=== PATIENT | female | born 1955 | race Caucasian/White ===

== ENCOUNTER 2022-12-21 08:41 | Outpatient (AMB) | payer OTHER, SELFPAY ==
[2022-12-21 08:44] VITALS: BP 124/70; PULSE 65; O2SAT 96; BMI 36.5
--- NOTE | 2022-12-21 08:44 | MHC.OFFVIS ---
Intake Vital Signs 12/21/22 08:44 Height 5 ft 4 in Weight 212 lb 11.937 oz BMI 36.5 BP 124/70 Blood Pressure Location Lt brachial Position Sitting Pulse 65 Pulse Source Pulse Oximeter Pulse Oximetry (%) 96 Oxygen Delivery Method Room Air Intake Visit Reasons: Cough Intake Note: New patient today being seen for chronic cough for years . Says it is worsening lately. The cough bothers her every day and is mostly dry. She sees an crop farm helper and they are advising the cough is not related to allergies. Patient says she has a chest xray in Jul [address] scan which showed only scar tissue. Poolroom/Poolhall Manager Required: No Headmaster/Mistress: Headmaster/Mistress offered & declined Accompanied by: Self / Same As Patient Allergies No Known Allergies Allergy (Verified 12/21/22 08:55) Medication List - Last Reconciled 12/21/22 by Dayan Rucker LPN fluticasone propionate 50 mcg/actuation (Flonase Allergy Relief) 1 spray intranasal DAILY loratadine (Claritin) 10 mg PO DAILY HPI Cough HPI Details Eric is a pleasant 67 year old female, minimal smoker as a teenager, with underlying environmental allergies and MATT+. She was referred by her PCP for pulmonary evaluation for chronic nonproductive cough that has been unchanged for years. She reports the cough is variable, has post nasal drip and denies any specific triggers. She does not report any wheezing or dyspnea. She denies any hemoptysis or chest pain. She denies any fevers, chills or weight loss. She states she has had bronchitis at least twice per year for over 20 years. She reports her PCP performed a thorough work up with labs and imaging, including a chest CT, but reports not available. She recalled the CT revealed some scarring which was attributed to multiple episodes of bronchitis. She has been evaluated in the past by an crop farm helper and reported multiple environmental allergies. She is currently using Flonase and Claritin daily along with albuterol multiple times per day with partial relief. She has not trialed any maintenance inhalers. She denies any personal or family history of autoimmune disorders. Her paternal grandfather, nonsmoker, had lung cancer. She denies any occupational exposures, as she has worked in an office setting. [facility] Surgical History (Updated 12/20/22 @ 16:16 by Dayan Rucker LPN) History of bilateral tubal ligation History of carpal tunnel repair History of section, classical Hx of cholecystectomy Social History (Updated 12/21/22 @ 08:58 by Dayan Rucker LPN) Patient Tobacco Use Status: Former Tobacco user Cigarettes Per Day: 2 Years Smoked: 2-3 Review of Systems Const Denies chills, Denies excessive sweating, Denies fever(s), Denies headache(s) and Denies night sweats Eyes Denies irritation and Denies itchy eyes ENT Reports Normal hearing present, Denies headache(s), Denies nasal congestion, Denies nasal discharge, Denies post nasal drip and Denies sore throat Card Denies chest pain, Denies chest pain at rest, Denies chest pain with activity, Denies claudication, Denies leg edema, Denies dyspnea, Denies dyspnea on exertion, Denies orthopnea and Denies paroxysmal nocturnal dyspnea Resp Denies chest congestion, Denies excessive phlegm production, Denies pain on inspiration, Denies pain with cough, Denies dyspnea, Denies dyspnea on exertion, Denies stridor and Denies wheezing Musc Denies myalgias Neuro Reports Normal hearing present and Denies headache(s) Endo Denies excessive sweating Yohan/Lymph Denies lymphadenopathy Aller/Immun Denies itchy eyes, Denies seasonal rhinorrhea and Denies wheezing Physical Exam Vital Signs: Last Vital Signs Pulse 65 12/21/22 08:44 BP 124/70 12/21/22 08:44 Pulse Ox 96 12/21/22 08:44 Oxygen Delivery Method Room Air 12/21/22 08:44 BMI result Body Mass Index 36.5 Const General: cooperative, healthy appearing, comfortable, no acute distress, well developed and alert Nutritional Appearance: obese Orientation/consciousness: patient oriented x3 Limitations: no limitations HEENT Head: Yes normal to inspection, Yes normocephalic and Yes atraumatic Ears: hearing grossly normal bilaterally and external ears normal Eyes General: appearance normal, both eyes and all related structures Eyelids: Yes eyelids normal Sclerae: sclerae normal EOM: EOMs intact bilaterally Neck Neck: Yes normal visual inspection and Yes no lymphadenopathy Lymphatic: no lymphadenopathy noted Chest Chest palpation & inspection: normal inspection of the chest Resp Effort & Inspection: normal respiratory effort, able to speak in complete sentences, no audible wheezes, no cough, no stridor, not tachypneic, no tripod positioning and no use of accessory muscles Auscultation: clear to auscultation bilaterally Cardio Jugular venous distension: no JVD Rate: regular rate Rhythm: regular rhythm Skin Other: warm, dry General skin exam: no rashes or lesions noted Neuro General: patient oriented x3 Cranial nerves: Yes Normal hearing present Cognition (Neuro): normal cognition Gait exam (Neuro): Normal gait present Extrem General: Yes normal to inspection, Yes capillary refill normal, Yes no clubbing, cyanosis or edema and Yes no pedal edema Psych Appearance: grossly normal and well kempt Speech and movement: Normal speech and movement present and Clear speech present Affect: normal affect Attitude: cooperative Thought process: Normal thought process present Thought content: Normal thought content present Insight: Good insight present (Psych) Judgement: Good judgement present (Psych) Assessment & Plan Assessment & Plan (1) Chronic cough: Code(s): R05.3 - Chronic cough (2) Environmental allergies: Code(s): Z91.09 - Other allergy status, other than to drugs and biological substances (3) MATT positive: Code(s): R76.8 - Other specified abnormal immunological findings in serum Plan Will request prior imaging report and lab work. If not recently performed, will order CBC to evaluate for eosinophilia as well as IgE and RAST. Her symptoms may have an allergic component, as she stated she had to discontinue skin testing in the past due to significant reaction. Will obtain PFT to assess for any obstructive defect contributing to her cough and empirically trial ICS. Inhaler technique reviewed. Although patient MATT+, at this time denies any related symptoms. Will reassess after receiving prior labs. All questions were answered and patient is in agreement of plan. Will follow up after to review results. Orders: Orders PFT pulmonary function test Today R05.3 - Chronic cough Medications: New fluticasone propionate 44 mcg/actuation (Flovent HFA) 2 puffs inhalation BID 10.6 grams 0RF albuterol sulfate 90 mcg/actuation 2 puffs inhalation Q4-6H PRN 1 ea 3RF shortness of breath or wheezing Coding Level of Care Code New Pt Level 4 (92422) Diagnoses Chronic cough R05.3 Environmental allergies Z91.09 MATT positive R76.8
== END 2022-12-21 09:31 | disposition home or self-care (01) ==
PROVIDERS: PCP Internal Medicine Medical Oncology; Referring Provider Internal Medicine Medical Oncology; Visit Provider Nurse Practitioner Family
DX: R05.3 Chronic cough (principal); Z91.09 Other allergy status, other than to drugs and biological substances; R76.8 Other specified abnormal immunological findings in serum
CPT/HCPCS: 99204

== ENCOUNTER → 2022-12-21 08:41 | Outpatient (BNVA) | payer OTHER, SELFPAY | PROVIDERS: Visit Provider Nurse Practitioner Family ==

== ENCOUNTER 2023-01-12 06:44 | Outpatient (REF) | payer OTHER, SELFPAY ==
[2023-01-12 07:01] LABS: MANUAL DIFF FLAG NO
[2023-01-12 07:10] LABS: Basophils Percent Auto 0.4 % (0-2); Eosinophils Absolute Auto 0.1 X10*3/uL (0.0-0.4); Eosinophils Percent Auto 2.9 % (0-4); Hemoglobin 13.9 g/dl (12.0-16.0); Imm Gran Abs Auto 0.01 X10*3/uL (0.00-0.03); Imm Gran Pct Auto 0.2 % (0.0-0.4); Lymphocytes Absolute Auto 1.4 X10*3/uL (1.2-4.9); Lymphocytes Percent Auto 30.6 % (20-40); Mean Corpuscular HGB Conc 33.1 g/dl (31.0-35.0); Mean Corpuscular Hemoglobin 30.1 pg (27.0-33.0); Mean Corpuscular Volume 90.9 fL (80.0-98.0); Mean Platelet Volume 11.6 fL (9.4-12.3); Monocytes Absolute Auto 0.5 X10*3/uL (0.1-1.2); Monocytes Percent Auto 10.6 % (2-11); Neutrophils Absolute Auto 2.5 x10*3/uL (2.0-8.3); Neutrophils Percent Auto 55.3 % (45-73); Platelet Count 143 X10*3/uL (160-400); Red Blood Count 4.62 X10*6/uL (4.20-5.50); Red Cell Distribution Width 12.4 % (11.0-16.0); White Blood Count 4.5 X10*3/uL (4.8-10.8)
[2023-01-14 09:23] LABS: Immunoglobulin E 43 kU/L (<OR=114)
== END 2023-01-12 06:45 | disposition home or self-care (01) ==
LOC: HO.LAB 06:44
PROVIDERS: PCP Internal Medicine Medical Oncology; Visit Provider Nurse Practitioner Family
DX: R05.3 Chronic cough (principal); Z91.09 Other allergy status, other than to drugs and biological substances
CPT/HCPCS: 36415; 82785; 85025; 86003

== ENCOUNTER 2023-02-22 07:46 | Outpatient (REF) | payer OTHER, SELFPAY | END 2023-02-22 07:47 | disposition home or self-care (01) | LOC: HO.RESP 07:46 | PROVIDERS: PCP Internal Medicine Medical Oncology; Visit Provider Nurse Practitioner Family | DX: R05.3 Chronic cough (principal) ==

== ENCOUNTER 2023-02-28 08:53 | Outpatient (AMB) | payer OTHER, SELFPAY ==
[2023-02-28 08:54] VITALS: BP 118/68; PULSE 71; O2SAT 98; BMI 35.7
--- NOTE | 2023-02-28 08:54 | A.OFFVIS_ITS ---
Intake Vital Signs 3 02/28/23 08:54 Height 5 ft 4 in Weight 208 lb BMI 35.7 BP 118/68 Blood Pressure Location Rt brachial Position Sitting Pulse 71 Pulse Source Pulse Oximeter Pulse Oximetry (%) 98 Oxygen Delivery Method Room Air Intake Visit Reasons: cough Lead Generation Representative Required: No Implementation Consultant: Implementation Consultant offered & declined Accompanied by: Self / Same As Patient Allergies No Known Allergies Allergy (Verified 02/28/23 09:03) Medication List - Last Reconciled 02/28/23 by Dayan Rucker LPN albuterol sulfate 90 mcg/actuation 2 puffs inhalation Q4-6H PRN budesonide 90 mcg/actuation (Pulmicort Flexhaler) 1 inh inhalation BID fluticasone propionate 50 mcg/actuation (Flonase Allergy Relief) 1 spray intranasal DAILY loratadine (Claritin) 10 mg PO DAILY HPI cough 2 HPI0 Details Eric is a pleasant 67 year old female, minimal smoker as a teenager, with underlying environmental allergies and MATT+. She continues to report nonproductive cough and denies chest tightness, wheezing or dyspnea. Prior chest CT revealed mild scarring. Although MATT+, denies any systemic symptoms. Her paternal grandfather, nonsmoker, had lung cancer. At the last visit, she was prescribed Pulmicort and had been using PRN. She reports using consistently for the past week and has had a slight decrease in symptoms. Today she presents to review PFT results. [facility] Surgical History (Updated 12/20/22 @ 16:16 by Dayan Rucker LPN) Hx of cholecystectomy History of carpal tunnel repair History of bilateral tubal ligation History of section, classical Social History (Updated 02/28/23 @ 09:05 by Dayan Rucker LPN) Patient Tobacco Use Status: Former Tobacco user Cigarettes Per Day: 2 Years Smoked: 2-3 Smoked in Last 30 Days: No Review of Systems Const Denies chills, Denies excessive sweating, Denies fever(s), Denies headache(s) and Denies night sweats Eyes Denies irritation and Denies itchy eyes ENT Reports Normal hearing present, Denies headache(s), Denies nasal congestion, Denies nasal discharge, Denies post nasal drip and Denies sore throat Card Denies chest pain, Denies chest pain at rest, Denies chest pain with activity, Denies claudication, Denies leg edema, Denies dyspnea, Denies dyspnea on exertion, Denies orthopnea and Denies paroxysmal nocturnal dyspnea Resp Denies chest congestion, Denies excessive phlegm production, Denies pain on inspiration, Denies pain with cough, Denies dyspnea, Denies dyspnea on exertion, Denies stridor and Denies wheezing Musc Denies myalgias Neuro Reports Normal hearing present and Denies headache(s) Endo Denies excessive sweating Yohan/Lymph Denies lymphadenopathy Aller/Immun Denies itchy eyes, Denies seasonal rhinorrhea and Denies wheezing Physical Exam Vital Signs: Last Vital Signs Pulse 71 02/28/23 08:54 BP 118/68 02/28/23 08:54 Pulse Ox 98 02/28/23 08:54 Oxygen Delivery Method Room Air 02/28/23 08:54 BMI result Body Mass Index 35.7 Const General: cooperative, healthy appearing, comfortable, no acute distress, well developed and alert Nutritional Appearance: obese Orientation/consciousness: patient oriented x3 Limitations: no limitations HEENT Head: Yes normal to inspection, Yes normocephalic and Yes atraumatic Ears: hearing grossly normal bilaterally and external ears normal Eyes General: appearance normal, both eyes and all related structures Eyelids: Yes eyelids normal Sclerae: sclerae normal EOM: EOMs intact bilaterally Neck Neck: Yes normal visual inspection and Yes no lymphadenopathy Lymphatic: no lymphadenopathy noted Chest Chest palpation & inspection: normal inspection of the chest Resp Effort & Inspection: normal respiratory effort, able to speak in complete sentences, no audible wheezes, no cough, no stridor, not tachypneic, no tripod positioning and no use of accessory muscles Auscultation: clear to auscultation bilaterally Cardio Jugular venous distension: no JVD Rate: regular rate Rhythm: regular rhythm Skin Other: warm, dry General skin exam: no rashes or lesions noted Neuro General: patient oriented x3 Cranial nerves: Yes Normal hearing present Cognition (Neuro): normal cognition Gait exam (Neuro): Normal gait present Extrem General: Yes normal to inspection, Yes capillary refill normal, Yes no clubbing, cyanosis or edema and Yes no pedal edema Psych Appearance: grossly normal and well kempt Speech and movement: Normal speech and movement present and Clear speech present Affect: normal affect Attitude: cooperative Thought process: Normal thought process present Thought content: Normal thought content present Insight: Good insight present (Psych) Judgement: Good judgement present (Psych) Results Reviewed Results Reviewed: Assessment & Plan Assessment & Plan (1) Chronic cough: Code(s): R05.3 - Chronic cough (2) Environmental allergies: Code(s): Z91.09 - Other allergy status, other than to drugs and biological substances (3) MATT positive: Code(s): R76.8 - Other specified abnormal immunological findings in serum Plan Reviewed PFT results which did not reveal an obstructive defect or significant response to bronchodilators. However did reveal restriction, likely related to obesity. IgE 43 and RAST positive to dust mites. Reviewed prior labs from PCP and no other tests were performed to assess for connective tissue conditions. If systemic symptoms develop, will send for additional labs, considering she is MATT +. Given that patient has only used her ICS inhaler consistently for the past week, advised to continue to use and will call in 2-3 weeks to see if she has had any increase in symptomatic improvement. All questions were answered and patient is in agreement of plan. Will follow up after to review results. Coding Level of Care Code Est Pt Level 4 (28767) Diagnoses Chronic cough R05.3 Environmental allergies Z91.09 MATT positive R76.8
== END 2023-02-28 09:24 | disposition home or self-care (01) ==
PROVIDERS: PCP Internal Medicine Medical Oncology; Visit Provider Nurse Practitioner Family
DX: R05.3 Chronic cough (principal); Z91.09 Other allergy status, other than to drugs and biological substances; R76.8 Other specified abnormal immunological findings in serum
CPT/HCPCS: 99214

== ENCOUNTER 2024-06-11 10:55 | Outpatient (REF) | payer BC, SELFPAY ==
--- NOTE | ~2024-06-11 | US_ITS ---
EXAMINATION: US THYROID CLINICAL INFORMATION: Tender thyroid. COMPARISON: None available. TECHNIQUE: Linear transducer grayscale and color Doppler examination with attention to the region of the thyroid. FINDINGS: SIZE: Measurements of the thyroid lobes and nodules are given in sagittal, anteroposterior and transverse dimensions respectively. Right Thyroid Lobe: 4.2 x 1.3 x 1 point cm, volume 5 mL. Parenchyma: The gland echotexture is normal. Thyroid vascularity is normal. Left Thyroid Lobe: 3.7 x 1.4 x 1.8 cm, volume 4.8 mL. Parenchyma: The gland echotexture is normal. Thyroid vascularity is normal. Isthmus: 0.3 cm in maximum AP dimension. Estimated total number of nodules greater than or equal to 1 cm: 9. Lever Operator nodules are described as follows: There are no thyroid nodules visualized. However there are multiple anechoic very small cysts. NODES: No lymphadenopathy is seen in the tissue surrounding the thyroid gland. US/US thyroid IMPRESSION: Unremarkable thyroid ultrasound. ACR TI-RADS RECOMMENDATION REFERENCE: Ultrasound-guided fine-needle aspiration, followup ultrasound, no further follow up. * TR1 (0 point) and TR2 (2 points): No FNA or follow up. * TR3 (3 points): FNA if more than or equal to 2.5 cm in maximum dimension, followup ultrasound in 1, 3 and 5 years if 1.5 to 2.4 cm in maximum dimension. * TR4 (4-6 points): FNA if more than or equal to 1.5 cm in maximum dimension, followup ultrasound in 1, 2, 3 and 5 years if 1 to 1.4 cm in maximum dimension. * TR5 (more than or equal to 7 points): FNA if more than or equal to 1 cm in maximum dimension, followup ultrasound every year for 5 years if 0.5 to 0.9 cm in maximum dimension. * TR3, TR4 or TR5 nodules that are below the size threshold for followup receive no follow up. Electronically signed by: Fish Monsalve MD 06/11/2024 11:44 AM [facility] [place]
== END 2024-06-11 10:56 | disposition home or self-care (01) ==
LOC: HO.US 10:55
PROVIDERS: PCP Internal Medicine Medical Oncology; Visit Provider Internal Medicine Medical Oncology
DX: R05.3 Chronic cough (principal)
CPT/HCPCS: 76536

== ENCOUNTER → 2024-06-11 11:10 | Outpatient (BNV) | payer BC, SELFPAY | PROVIDERS: PCP Internal Medicine Medical Oncology; Visit Provider Radiology Diagnostic Radiology | DX: E04.1 Nontoxic single thyroid nodule (principal) | CPT/HCPCS: 76536 ==

== ENCOUNTER 2025-04-23 09:30 | Outpatient (REF) | payer BC, SELFPAY ==
--- OUTSIDE RECORDS SUMMARY | 2024-08-02 05:30 | XMS_ITS ---
Author Organization Mahendra Lindsay III, MD Address [address] [place] [address] Care Team Providers Care Sheet Heater Helper Name Role Phone Dr. Mahnedra Lindsay III Primary Care Provider Allergies Allergen (clinical drug ingredient) Drug/Non Drug Allergy documented on EMR Reaction Allergy Type Onset Date Status No Known Drug Allergy Unknown Drug Allergy Active Reason For Referral Reason persistant cough wit h hoarseness Diagnosis 1 Acute cough (R05.1) Diagnosis 2 Hoarseness (R49.0) Referral Organization Mahendra Lindsay III, MD Referring Provider First Name Mahendra Referring Provider Last Name Angélica Referring Provider Speciality Internal M edicine Referred Provider [facility], [facility] Referred Provider Specialty Otolaryngolo gy General Notes Taryn Kaiser CMA 08/06 11:01:45 AM >referral/demo/progress [facility] 08/07/2024 10:06:32 AM > Patient stated she is going to contact their office to schedule an appointment as she was seen there in the past., Taryn Kaiser CMA 08/14/2024 03:26:49 PM >called ENT pt is scheduled to see Bhavani BRYAN on 05/06/2025 Referral Priority Routine Referral Appointment Date 05/06/2025 REASON FOR VISIT Viral syndrome, Severe cough, Congestion, Bronchitis, Hypertension, History of thyroiditis Medications Medication SIG (Take, Route, Frequency, Duration) Notes Start Date End Date Status Doxepin HCl 10 MG TAKE 1 CAPSULE BY [facility] EVERY DAY AT BEDTIME FOR 30 DAYS Active Pulmicort Flexhaler 90 MCG/ACT Inhalation Active Omeprazole 40 MG 1 capsule 30 minutes before morning meal Orally Once a day Active Benzonatate 200 MG 1 capsule Orally Thr ee times a day for 90 days 01/27/2024 07/28/2025 Active Gabapentin 300 MG 1 capsule Orally thr ee times a day for 30 days 08/02/2024 Active Aspirin 81 81 MG 1 tablet Orally Once a day Active Pantoprazole Sodium 40 MG 1 tablet Orall y Once a day for 90 days 10/07/2023 Active Claritin 10 MG 1 tablet Orally Once a day Active Atenolol 25 MG TAKE 2 TABLETS ONCE DAILY Active Sertraline HCl 25 MG 1 tablet Orally Onc e a day 06/02/2022 Active Flonase Allergy Relief 50 MCG/ACT 1 spray in each nostril Nasally Once a day Active Albuterol Sulfate HFA 108 (90 Base) MCG/ACT 1 puff as needed Inhalation every 4 hrs 08/27/2019 Active Ibuprofen 200 MG 1 tablet with food o r milk as needed Orally every 6 hrs Active Tylenol Extra Strength 500 MG 1 tablet as needed Orally every 6 hrs Active Calcium 600 + D 600-400 MG-UNIT 1 tablet with a meal Orally Once a day Active Social History Tobacco Use: Social History Observation Description Date Details (start date - stop date) Never Smoker NA - NA Sex Assigned At : Social History Observation Description Sex Assigned At Female Tobacco Use/Smoking Question Answer Notes Patient is a nonsmoker Additional Findings: Tobacco Non-User Aggressive non-smoker Problems Problem Type SNOMED Code ICD Code Onset Dates Problem Status W/U Status Risk Notes Problem [id number] Acute viral bronchitis (J20.8) Active confirmed She continues to have congestion and a refractory cough. I have given her a prescription for benzonatate. She will call me in 3 days to report on its efficacy. Vital Signs Temperature 98.8 degrees Fahrenheit 08/02/19 25 Blood pressure systolic 142 mm Hg 08/02/19 25 Blood pressure diastolic 82 mm Hg 025 Heart Rate 89 /min 08/02/2024 Height 64 in 08/02/2024 Weight 213 lbs 08/02/2024 BMI 36.56 kg/m2 08/02/2024 Her Encounters Encounter Location Date Provider Diagnosis Mahendra Lindsay III, MD [address] [place] [address] [place], [place] [address] 08/02/2024 Mahendra Lindsay Mixed hyperlipidemia E78.2 ; Acute viral bronchitis J20.8 ; Essential hypertension I10 ; Osteopenia after menopause M81.0 ; Obesity (BMI 30-39.9) E66.9 ; Osteoarthritis of spine with radiculopathy, cervical region M47.22 and Generalized anxiety disorder F41.1 Assessments Encounter Date Diagnosis (ICD Code) Assessment Notes Treat ment Notes Treatment Clinical Notes 08/02/2024 Mixed hyperlipidemia (ICD-10 - E78.2) Her total cholesterol was 243 with an LDL of 150 and an HDL elevated at 76. Her ratio is under 4.0. We have discussed the use of a statin. She continues the effort at weight reduction and lipids reduction by diet. 08/02/2024 Acute viral bronchitis (ICD-10 - J20.8) She continues to have congestion and a refractory cough. I have given her a prescription for benzonatate. She will call me in 3 days to report on its efficacy. 08/02/2024 Essential hypertension (ICD-10 - I10) Her blood pressure today is 142/82. No change in her regimen was made. We discussed aggressive sodium restriction and weight loss combined with regular physical activity. 08/02/2024 Osteopenia after menopause (ICD-10 - M81.0) She is stable and without bone pain. She will continue on current therapy. 08/02/2024 Obesity (BMI 30-39.9 ) (ICD-10 - E66.9) . Her body mass index is 36.9.. We discussed diet and nutrition today. We made a plan to lose weight at a rate of one half of a pound per week through a diet restricted in fat calories and sodium. 08/02/2024 Osteoarthritis of spine with radiculopathy, cervical region (ICD-10 - M47.22) He is going to have a surgical procedure to repair this next Tuesday. 08/02/2024 Generalized anxiety disorder (ICD-10 - F41.1) She was continued on sertraline with follow-up visits. Plan Of Treatment Medication Medication Name Sig Start Date Stop Date Notes Doxepin HCl 10 MG TAKE 1 CAPSULE BY [facility] EVERY DAY AT BEDTIME FOR 30 DAYS Pulmicort Flexhaler 90 MCG/ACT Inhalation Omeprazole 40 MG 1 capsule 30 minutes before morning meal Orally Once a day Benzonatate 200 MG 1 capsule Orally Thr ee times a day for 90 days 01/27/2024 07/28/2025 Gabapentin 300 MG 1 capsule Orally thr ee times a day for 30 days 08/02/2024 Aspirin 81 81 MG 1 tablet Orally Once a day Pantoprazole Sodium 40 MG 1 tablet Orall y Once a day for 90 days 10/07/2023 Claritin 10 MG 1 tablet Orally Once a day Atenolol 25 MG TAKE 2 TABLETS ONCE DAILY Sertraline HCl 25 MG 1 tablet Orally Once a day 06/02/2022 Flonase Allergy Relief 50 MCG/ACT 1 spray in each nostril Nasally Once a day Albuterol Sulfate HFA 108 (9 0 Base) MCG/ACT 1 puff as needed Inhalation every 4 hrs 08/27/2019 Ibuprofen 200 MG 1 tablet with food o r milk as needed Orally every 6 hrs Tylenol Extra Strength 500 MG 1 tablet a s needed Orally every 6 hrs Calcium 600 + D 600-400 MG-UNIT 1 tablet with a meal Orally Once a day Referrals Referral Date Details 08/02/2024 08/02/2024, persista nt cough with hoarseness, of [facility], [facility] Next Appt Details Follow Up: as scheduled October for annual exam, Reason: annual exam Provider Name:Mahendra Lindsay , 05/09/2025 09:00:00 AM, [address] [place] [address] [address], [place], [address], Provider Name:Mahendra Lindsay , 01/07/2026 09:00:00 AM, [address] [place] [address] [address], [place], [address], Progress Notes * GAYLE VAZQUEZ DDOB:[birth year] (69 yo F)Acc No.[id number]:08/02/2024 Progress Notes Patient: Selin CHAOSHASHANK GAYLE Abbasi Provider: Selin Lindsay MD :1955 A ge:69 Y S ex:Female Date:08/02/2024 Address:[address] [place], [place] [id number] Subjective: * Chief Complaints: * V iral syndromeSevere coughCongestionBronchitisHypertensionHistory of thyroiditis * HPI: C OVID-19 Screening: She has had a moderate to severe viral syndrome with a refractory cough and pulmonary congestion and bronchitis recently. He has requested cough medication. She has had no relief with medications that contain dextromethorphan. She was given a prescription for benzonatate and instructions to call back after a trial of this product. Questions H ave you had any new onset fever, chills, cough, congestion, sore throat, shortness of breath, muscle aches? N o * ROS: G eneral/Constitutional: pain o nly normal aches and pains. C hills d enies.?Fatigue a dmits. F ever d enies. E NT: Decreased hearing d enies. R espiratory: Cough K eeps her awake at night. C ardiovascular: Chest pain with exertion d enies. D yspnea on exertion?denies. S hortness of breath d enies. G astrointestinal: Constipation o ccasional. D ecreased appetite d enies. D iarrhea d enies. H eartburn d enies. N ausea d enies. R ectal bleeding d enies. V omiting d enies. H ematology: bruising d enies. p etechiae d enies. S wollen glands n one have been noted. G enitourinary: Frequent urination d enies. M usculoskeletal: Muscle aches d enies. P ainful joints d enies. S ciatica d enies. W eakness t hat is generalized. S kin: Itching d enies. R killian d enies. S kin lesion(s)?denies. N eurologic: Difficulty speaking d enies. D izziness d enies.?Headache d enies. L ow back pain d enies. P sychiatric: Depressed mood d enies. * Medical History: * Surgical History: c esarean section tubal ligation appendectomy bilateral carpal tunnel surgery cholecystectomy 2018colonoscopy next due to thousand 19 kidney stones removal 06/2018Kidnvenkat stone removal 09/2019Colonoscopy Dr. Donis 10/2019Biopsy done on left knee Dr. [employer] Professor eft wrist surgery 02/15/2023No history * Hospitalization/Major Diagno stic Procedure: r enal colic 12/30/17chest pain [facility] 12/2020No history * Family History: F ather: alive 85 yrs, CAD, diagnosed with CVD. M other: alive 81 yrs, AODM, breast cancer age 78, diagnosed with HTN, CVD, Cancer, DM. C hildren: alive. S iblings: alive. P aternal aunt: alive, diagnosed with CVD. M aternal aunt: alive, diagnosed with Cancer. M aternal Grand Mother: diagnosed with Cancer. 1 brother(s) . . Her brother has coronary artery disease and back problems. She has 1 child, Kristy, and a grand child alive and well. A maternal grandmother had breast cancer. A paternal aunt has coronary artery disease. A maternal aunt has breast cancer and lymphoma. Another aunt has fibrocystic disease. She is not aware of any family history of mental illness or substance use disorder or addiction. The patient's aunt of lymphoma. * Social History: T obacco Use: T obacco Use/Smoking P atjesus is a n onsmoker A dditional Findings: Tobacco Non-User A ggressive non-smoker S he works at [employer] with no exposures. She has been to Eddie for 40 years. She has 1 healthy child and 1 healthy grandchild. {'Custodial': 'The patient is retiring and will be getting new insurance at the start of the new year.', 'Water Intake': 'The patient drinks a lot of water because her mouth is always dry.'}. * Medications: T akingDoxepin HCl 10 MG Capsule TAKE 1 CAPSULE BY MOUTH EVERY DAY AT BEDTIME FOR 30 DAYS Albuterol Sulfate HFA 108 (90 Base) MCG/ACT Aerosol Solution 1 puff as needed Inhalation every 4 hrs Ibuprofen 200 MG Tablet 1 tablet with food or milk as needed Orally every 6 hrs Tylenol Extra Strength 500 MG Tablet 1 tablet as needed Orally every 6 hrs Calcium 600 + D 600-400 MG-UNIT Tablet 1 tablet with a meal Orally Once a day Flonase Allergy Relief 50 MCG/ACT Suspension 1 spray in each nostril Nasally Once a day Claritin 10 MG Tablet 1 tablet Orally Once a day Atenolol 25 MG Tablet TAKE 2 TABLETS ONCE DAILY Sertraline HCl 25 MG Tablet 1 tablet Orally Once a day Pantoprazole Sodium 40 MG Tablet Delayed Release 1 tablet Orally Once a day Aspirin 81 81 MG Tablet Delayed Release 1 tablet Orally Once a day Pulmicort Flexhaler 90 MCG/ACT Aerosol Powder Breath Activated Inhalation Omeprazole 40 MG Capsule Delayed Release 1 capsule 30 minutes before morning meal Orally Once a day Benzonatate 200 MG Capsule 1 capsule as needed Orally Three times a day Medication List reviewed and reconciled with the patientTaking Doxepin HCl 10 MG Capsule TAKE 1 CAPSULE BY MOUTH EVERY DAY AT BEDTIME FOR 30 DAYS Taking Albuterol Sulfate HFA 108 (90 Base) MCG/ACT Aerosol Solution 1 puff as needed Inhalation every 4 hrs Taking Ibuprofen 200 MG Tablet 1 tablet with food or milk as needed Orally every 6 hrs Taking Tylenol Extra Strength 500 MG Tablet 1 tablet as needed Orally every 6 hrs Taking Calcium 600 + D 600-400 MG-UNIT Tablet 1 tablet with a meal Orally Once a day Taking Flonase Allergy Relief 50 MCG/ACT Suspension 1 spray in each nostril Nasally Once a day Taking Claritin 10 MG Tablet 1 tablet Orally Once a day Taking Atenolol 25 MG Tablet TAKE 2 TABLETS ONCE DAILY Taking Sertraline HCl 25 MG Tablet 1 tablet Orally Once a day Taking Pantoprazole Sodium 40 MG Tablet Delayed Release 1 tablet Orally Once a day Taking Aspirin 81 81 MG Tablet Delayed Release 1 tablet Orally Once a day Taking Pulmicort Flexhaler 90 MCG/ACT Aerosol Powder Breath Activated Inhalation Taking Omeprazole 40 MG Capsule Delayed Release 1 capsule 30 minutes before morning meal Orally Once a day Taking Benzonatate 200 MG Capsule 1 capsule as needed Orally Three times a day Medication List reviewed and reconciled with the patient * Allergies: N o Known Drug Allergyno[Allergies Verified] Objective: * Vitals: H t: 64, Wt:213, BMI:36.56, BP:142/82, HR:89, Temp:98.8, Ht-cm: 162.56, Wt-k.62. Her. * P ast Orders: I maging:XR CHEST 2 VIEW PA & LAT (Order Date - 05/29/2024) (Performed Date - 08/02/2024) * Examination: G eneral Examination: GENERAL APPEARANCE: p leasant, well nourished, well developed, in no acute distress, calm and relaxed, overweight, woman. HEAD: a traumatic, normocephalic. EYES: e oleg, perrla, anicteric, conjugate. EARS: n ormal. NOSE: s eptum intact. ORAL CAVITY: n ormal, unremarkable. NECK/THYROID: n o jugular venous distention, no carotid bruit, thyroid normal. LYMPH NODES: n o enlarged lymph nodes,spleen normal. SKIN: n o suspicious lesions, anicteric. HEART: n o clicks, gallops, murmurs, or rubs, regular rhythm, S1, S2 normal, no s3, or vascular bruits. LUNGS: , rhonchi on the RIGHT, rhonchi on the LEFT, good air movement. BREASTS: N ot examined. ABDOMEN: b owel sounds normal, no ascites, no organomegaly, no mass, overweight. RECTAL EXAM: n ot examined. MUSCULOSKELETAL: e xtremities unremarkable, no clubbing, cyanosis or edema. PERIPHERAL PULSES: n ormal. NEUROLOGIC: a lert and oriented, cranial nerves 2-12 grossly intact, deep tendon reflexes 2+ symmetrical, motor strength normal upper and lower extremities, sensory exam intact. PSYCH: a lert, oriented. Assessment: * Assessment: 1. A cute viral bronchitis - J20.8 (Primary) N otes :She continues to have congestion and a refractory cough. I have given her a prescription for benzonatate. She will call me in 3 days to report on its efficacy. 2 . M ixed hyperlipidemia - E78.2 N otes :Her total cholesterol was 243 with an LDL of 150 and an HDL elevated at 76. Her ratio is under 4.0. We have discussed the use of a statin. She continues the effort at weight reduction and lipids reduction by diet. 3 . E ssential hypertension - I10 N otes :Her blood pressure today is 142/82. No change in her regimen was made. We discussed aggressive sodium restriction and weight loss combined with regular physical activity. 4 . O steopenia after menopause - M81.0 N otes :She is stable and without bone pain. She will continue on current therapy. 5 . O besity (BMI 30-39.9) - E66.9 N otes :. Her body mass index is 36.9.. We discussed diet and nutrition today. We made a plan to lose weight at a rate of one half of a pound per week through a diet restricted in fat calories and sodium. 6 . O steoarthritis of spine with radiculopathy, cervical region - M47.22 N otes :He is going to have a surgical procedure to repair this next Tuesday. 7 . G eneralized anxiety disorder - F41.1 N otes :She was continued on sertraline with follow-up visits. Plan: * Treatment: 2. O thers Continue Pantoprazole Sodium Tablet Delayed Release, 40 MG, 1 tablet, Orally, Once a day, 90 days, 90 Tablet, Refills 3; C ontinue Omeprazole Capsule Delayed Release, 40 MG, 1 capsule 30 minutes before morning meal, Orally, Once a day. Referral To:[facility] Otol[facility]ology Reason:persistant cough with hoarseness * Procedure Codes: * Preventive Medicine: Counseling: C are goal follow-up plan: Counseling for abnormal BMI given Y es Above Normal BMI Follow-up D ietary management education, guidance, and counseling, Dietary needs education, Exercise promotion: strength training, Exercise promotion: stretching, Feeding regime, Giving encouragement to exercise, Lifestyle education regarding diet, Nutrition / feeding management, Nutrition therapy, Prescribed activity/exercise education, Prescribed diet education, Prescribed dietary intake, Special diet education, Weight monitoring , Intervention, Order not done: Medical or Other reason not done * Follow Up: a s scheduled October for annual exam (Reason: annual exam) * Images: * Sign off status: Completed true * Provider: Selin Lindsay MD Date: 0 08/02/2024 Generated for Cassandra patrick/[place]/Rachelleitting on: 06/24/2024 03:12 AM EST History and Physical Notes * HPI (History of Present Illness) Category Sub-Category Detail Notes COVID-19 Screening Questions Have you had any new onset fever, chills, cough, congestion, sore throat, shortness of breath, muscle aches?: No Examination Category Sub-Category Detail Notes General Examination GENERAL APPEARANCE: pleasant , well nourished, well developed, in no acute distress, calm and relaxed, overweight, woman HEAD: atraumatic, normocep halic EYES: eomi, perrla, anicte ricarda, conjugate EARS: normal NOSE: septum intact NECK/THYROID: no jugular venous di stention, no carotid bruit, thyroid normal HEART: no clicks, gallops, murmurs, or rubs, regular rhythm, S1, S2 normal, no s3, or vascular bruits LUNGS: , rhonchi on the RIG HT, rhonchi on the LEFT, good air movement ABDOMEN: bowel sounds normal, no ascites, no organomegaly, no mass, overweight NEUROLOGIC: alert and oriented, cranial nerves 2-12 grossly intact, deep tendon reflexes 2+ symmetrical, motor strength normal upper and lower extremities, sensory exam intact SKIN: no suspicious lesion s, anicteric PERIPHERAL PULSES: normal BREASTS: Not examined MUSCULOSKELETAL: extremities unremark able, no clubbing, cyanosis or edema LYMPH NODES: no enlarged lymph no nathan,spleen normal RECTAL EXAM: not examined PSYCH: alert, oriented ORAL CAVITY: normal, unremarkable Consultation Request Notes Referral Date Referring Provider Referred Provider Not 08/02/2024 Mahendra Lindsay Surgeons, of [facility], [facility] persistant cough with hoarseness
--- OUTSIDE RECORDS SUMMARY | 2024-08-02 10:48 | XMS_ITS ---
Author Organization Mahendra Lindsay III, MD Address [address] [place] [address] Care Team Providers Care Biomedical Engineer Name Role Phone Dr. Mahendra Lindsay III Primary Care Provider [phone] REASON FOR VISIT Rx Social History Sex Assigned At : Social History Observation Description Sex Assigned At Female Encounters Encounter Location Date Provider Diagnosis Mahendra Lindsay III, MD [address] [place] [address] [place] [address] 08/02/2024 Mahendra Lindsay Plan Of Treatment Next Appt Details Provider Name:Mahendra Lindsay , 05/09/2025 09:00:00 AM, [address] [place] [address] [place], [address], Provider Name:Mahendra Lindsay , 01/07/2026 09:00:00 AM, [address] [place] [address] [place], [address], Progress Notes * GAYLE VAZQUEZ DDOB:[birth year] (69 yo F)Acc No.[id number]:08/02/2024 Patient: Selin CHAOSHASHANKGAYLE :1955 A ge:69 Y S ex:Female Address:[facility] [place], [address] * true * Date: Generated for Printi ng/Faxing/eTransmitting on: 06/24/2024 03:08 AM EST
--- OUTSIDE RECORDS SUMMARY | 2024-08-07 05:10 | XMS_ITS ---
Author Organization Mahendra Lindsay III, MD Address [address] [place] [address] Care Team Providers Care Genetics Physician Name Role Phone Dr. Mahendra Lindsay III Primary Care Provider Reason For Referral Reason chronic GERD chron ic cough Diagnosis 1 Chronic GERD (K21.9) Diagnosis 2 Chronic cough (R05.3 ) Referral Organization Mahendra Lindsay III, MD Referring Provider First Name Mahendra Referring Provider Last Name Angélica Referring Provider Speciality Internal M edicine Referred Provider JESSIKA WALSH Referred Provider Specialty Gastroentero logy General Notes Taryn Kaiser [facility] 10/31 10:50:24 AM > referral/demo/progress notes faxed to [facility] . pt has been seen there before by Awilda Bobby Suzanne [facility] 10/31/2024 10:54:38 AM > Pt called and made aware of this and told to call the office to set up her appt, Taryn Kaiser [facility] 11/14/2024 02:28:14 PM > spoke to patient she stated she has appt at the end of November 2024 to see Fly Worker, Taryn Kaiser [facility] 11/14/2024 02:34:33 PM >I called [facility] they stated pt has appt with Dr Walsh on 01/02/2025 . Referral Priority Routine Referral Appointment Date 01/02/2025 REASON FOR VISIT Referral for gastro consult Social History Sex Assigned At : Social History Observation Description Sex Assigned At Female Encounters Encounter Location Date Provider Diagnosis Mahendra Lindsay III, MD [address] [place] [address] [place] [address] 08/07/2024 Mahendra Lindsay Plan Of Treatment Referrals Referral Date Details 10/31/2024 10/31/2024, chronic GERD chronic cough, JESSIKA WALSH Next Appt Details Provider Name:Mahendra Liangne , 05/09/2025 09:00:00 AM, [address] [place] [address] [address], [place], [address], Provider Name:Mahendra Lindsay , 01/07/2026 09:00:00 AM, [address] [place] [address] [address], [place], [address], Progress Notes * GAYLE VAZQUEZ DDOB:[birth year] (69 yo F)Acc No.[id number]:08/07/2024 Patient: GAYLE POWERS :1955 A ge:69 Y S ex:Female Address:[address] [place] [address], [address] Subjective: * Chief Complaints: * R eferral for gastro consult * Medical History: * Surgical History: * Hospitalization/Major Diagno stic Procedure: * Medications: Objective: * Vitals: * Physical Examination: Assessment: Plan: * Treatment: * Procedure Codes: * true * Date: Generated for Cassandra patrick/[place]/eTransmitting on: 06/24/2024 03:07 AM EST Consultation Request Notes Referral Date Referring Provider Referred Provider Not lianna 10/31/2024 Mahendra Lindsay PETER chronic GE RD chronic cough
--- OUTSIDE RECORDS SUMMARY | 2024-10-12 12:15 | XMS_ITS ---
Author Organization Mahendra Lindsay III, MD Address [address] [place] [address] Care Team Providers Care Pasta Press Operator Name Role Phone Dr. Mahendra Lindsay III Primary Care Provider REASON FOR VISIT Annual Exam Social History Sex Assigned At : Social History Observation Description Sex Assigned At Female Encounters Encounter Location Date Provider Diagnosis Mahendra Lindsay III, MD [address] [place] [address] [place] [address] 10/12/2024 Mahendra Lindsay Plan Of Treatment Next Appt Details Provider Name:Mahendra Lindsay , 05/09/2025 09:00:00 AM, [address] [place] [address] [place], [address], Provider Name:Mahendra Lindsay , 01/07/2026 09:00:00 AM, [address] [place] [address] [place], [address], Progress Notes * GAYLE VAZQUEZ DDOB:[birth year] (70 yo F)Acc No.[id number]:10/12/2024 Progress Notes Patient: Selin GAYLE BRYANT Provider: Selin Lindsay MD :1955 A ge:69 Y S ex:Female Date:10/12/2024 [place] [place] Subjective: * Chief Complaints: * 1 . Annual Exam. * Medical History: Objective: * Vitals: Assessment: Plan: * Treatment: * Images: * The named appointment provid er may or may not be the originator of this progress note, and it is not deemed complete until electronically signed by the appointment provider. Sign off status: Pending * Provider: Selin Lindsay MD Date: 0 10/12/2024 Generated for Cassandra patrick/Carolina/Daniela on: 06/24/2024 03:04 AM EST
--- OUTSIDE RECORDS SUMMARY | 2025-01-04 04:00 | XMS_ITS ---
Author Organization Mahendra Lindsay III, MD Address [address] [place] [address] [place] [address] Care Team Providers Care Key Operator Name Role Phone Dr. Mahendra Lindsay III Primary Care Provider Allergies Allergen (clinical drug ingredient) Drug/Non Drug Allergy documented on EMR Reaction Allergy Type Onset Date Status No Known Drug Allergy Unknown Drug Allergy Active No Known Food Allergy Unknown Drug Allergy Active REASON FOR VISIT Annual Exam Medications Medication SIG (Take, Route, Frequency, Duration) Notes Start Date End Date Status Gabapentin 300 MG 1 capsule Orally thr ee times a day 08/02/2024 Active Potassium Citrate ER 10 MEQ (1080 MG) TAKE 1 TABLET BY MOUTH EVERY DAY Oral Active Aspirin 81 81 MG 1 tablet Orally Once a day Active Social History Tobacco Use: Social History Observation Description Date Details (start date - stop date) Never Smoker NA - NA Sex Assigned At : Social History Observation Description Sex Assigned At Female Tobacco Control (Standard) Question Answer Notes Tobacco use: Nonsmoker Additional Findings: Tobacco non-user Aggressive nonsmoker AUDIT-C (Standard) Question Answer Notes Did you have a drink containing alcohol in the p ast year? No Points 0 Interpretation Negative Vital Signs Blood pressure systolic 136 mm Hg 01/05/20 25 Blood pressure diastolic 78 mm Hg 025 Heart Rate 72 /min 01/04/2025 Respiratory Rate 16 /min 01/04/2025 Height 64 in 01/04/2025 Weight 216 lbs 01/04/2025 BMI 37.07 kg/m2 01/04/2025 Encounters Encounter Location Date Provider Diagnosis Mahendra Lindsay III, MD [address] [place] [address] [place], [place] [address] 01/04/2025 Mahendra Lindsay Mixed hyperlipidemia E78.2 ; Essential hypertension I10 ; Obesity (BMI 30-39.9) E66.9 ; Osteopenia after menopause M81.0 ; Osteoarthritis of spine with radiculopathy, cervical region M47.22 ; Osteoarthritis of spine with radiculopathy, lumbar region M47.26 ; Bilateral carpal tunnel syndrome G56.03 ; Nephrolithiasis N20.0 and Essential tremor G25.0 Assessments Encounter Date Diagnosis (ICD Code) Assessment Notes Treat ment Notes Treatment Clinical Notes 01/04/2025 Mixed hyperlipidemia (ICD-10 - E78.2) Her total cholesterol was 243 with an LDL of 150 and an HDL elevated at 76. Her ratio is under 4.0. We have discussed the use of a statin. She continues the effort at weight reduction and lipids reduction by diet. 01/04/2025 Essential hypertension (ICD-10 - I10) Her blood pressure today is 136/78. No change in her regimen was made. We discussed aggressive sodium restriction and weight loss combined with regular physical activity. 01/04/2025 Obesity (BMI 30-39.9 ) (ICD-10 - E66.9) . Her body mass index is 37.. We discussed diet and nutrition today. We made a plan to lose weight at a rate of one half of a pound per week through a diet restricted in fat calories and sodium. 01/04/2025 Osteopenia after menopause (ICD-10 - M81.0) She is stable and without bone pain. She will continue on current therapy. 01/04/2025 Osteoarthritis of spine with radiculopathy, cervical region (ICD-10 - M47.22) He is going to have a surgical procedure to repair this next Tuesday. 01/04/2025 Osteoarthritis of spine with radiculopathy, lumbar region (ICD-10 - M47.26) She has mild pain down the right leg, but now has severe pain down the left leg without any antecedent. She declined an offer of gabapentin. She will continue on acetaminophen and ibuprofen. 01/04/2025 Bilateral carpal tunnel syndrome (ICD-10 - G56.03) She is free of any symptoms at this time. 01/04/2025 Nephrolithiasis (ICD-10 - N20.0) She had an episode of renal colic in September. She will followup with a kiln pusher periodically. A stone was retrieved and she was told it was a calcium stone. We have discussed her calcium intake today. 01/04/2025 Essential tremor (ICD-10 - G25.0) There is been no change in the tremor and is very minor. It will be observed. Plan Of Treatment Medication Medication Name Sig Start Date Stop Date Notes Gabapentin 300 MG 1 capsule Orally thr ee times a day 08/02/2024 Potassium Citrate ER 10 MEQ (1080 MG) TAKE 1 TABLET BY MOUTH EVERY DAY Oral Aspirin 81 81 MG 1 tablet Orally Once a day Next Appt Details Follow Up: 3 Months, Reason: OV Provider Name:Mahendra Lindsay , 05/09/2025 09:00:00 AM, [address] [place] [address] [place], [place], [address], Provider Name:Mahendra Lindsay , 01/07/2026 09:00:00 AM, [address] [place] [address] [place], [place], [address], Progress Notes * GAYLE VAZQUEZ DDOB:[birth year] (69 yo F)Acc No.[id number]:01/04/2025 Progress Notes Patient: GAYLE POWERS Provider: Selin Lindsay MD :1955 A ge:69 Y S ex:Female Date:01/04/2025 Address:[address] [place] [address] Subjective: * Chief Complaints: * A nnual Exam * HPI: D epression Screening: S he returns to the office at the age of 69 for her annual visit. Her main complaints today are that she has neuropathic pain in both feet and some arthritic pain in her lumbar spine. She has been to [facility] and has received injections in her hips. These have been somewhat effective. She has had another round of lithotripsy for kidney stones. She is currently asymptomatic. She denies any chest pain or dyspnea peripheral edema nausea or vomiting or diarrhea. She has been compliant with all of her medications.Her next lithotripsy is scheduled for February 2025. PHQ-9 L ittle interest or pleasure in doing things?Not at all F eeling down, depressed, or hopeless N ot at all T rouble falling or staying asleep, or sleeping too much S everal days F eeling tired or having little energy N ot at all P oor appetite or overeating N ot at all F eeling bad about yourself or that you are a failure, or have let yourself or your family down N ot at all T rouble concentrating on things, such as reading the newspaper or watching television N ot at all M oving or speaking so slowly that other people could have noticed; or the opposite, being so fidgety or restless that you have been moving around a lot more than usual N ot at all T houghts that you would be better off or of hurting yourself in some way N ot at all T otal Score 1 I nterpretation M inimal Depression C OVID-19 Screening: Questions H ave you had any new onset fever, chills, cough, congestion, sore throat, shortness of breath, muscle aches? N o F all Risk Screening: Fall History H ave you had any falls with injury in the past year? N o H ave you had two or more falls in the past year? N o F all Risk Assessment: N o falls in the past year S SON Questions: SDOH Questions I n the past year have you been worried about losing your housing? N o I n the past year have you or any family members you live with been unable to get any of the following when it was really needed? Check all that apply: D ecline to answer * ROS: G eneral/Constitutional: pain H ips legs lumbar spine. C hills d enies. F atigue a dmits. F ever d enies. E NT: Decreased hearing d enies. R espiratory: Cough d enies. C ardiovascular: Chest pain with exertion d [...] have been noted. G enitourinary: Frequent urination a t night. M usculoskeletal: Muscle aches d enies. P ainful joints d enies. S ciatica d enies. W eakness d enies. S kin: Itching d enies. R killian d enies. S kin lesion(s)?denies. N eurologic: Difficulty speaking d enies. D izziness d enies.?Headache d enies. L ow back pain d enies. P sychiatric: Depressed mood d enies. * Medical History: * Surgical History: c esarean section tubal ligation appendectomy bilateral carpal tunnel surgery cholecystectomy 2017colonoscopy next due to thousand 19 kidney stones removal 06/2018Kidney stone removal 09/2019Colonoscopy Dr. Donis 10/2019Biopsy done on left knee Dr. Ventura Electronic Musical Instrument Repairer 1Left wrist surgery 3Kidney stone removed 08/2024 * Hospitalization/Major Diagno stic Procedure: r enal colic 12/30/17chest pain [facility] 12/2020No history * Family History: F ather: alive 92 yrs, CAD, diagnosed with CVD. M other: 85 yrs, AODM, breast cancer age 78, diagnosed [...] Social History: T obacco Use: T obacco Control (Standard) T obacco use: N onsmoker A dditional Findings: Tobacco non-user A ggressive nonsmoker D rugs/Alcohol: D rugs H ave you used drugs other than those for medical reasons in the past 12 months? N o D rug/Alcohol: A CLAUDIA-C (Standard) D id you have a drink containing alcohol in the past year? N o P oints 0 I nterpretation N egative S he works at [employer] with no exposures. She has been to Eddie for 40 years. She has 1 healthy child and 1 healthy grandchild. {'Chcf': 'The patient is retiring and will be getting new insurance at the start of the new year.', 'Water Intake': 'The patient drinks a lot of water because her mouth is always dry.'}. * Medications: T akingAspirin 81 81 MG Tablet Delayed Release 1 tablet Orally Once a day Gabapentin 300 MG Capsule 1 capsule Orally three times a day Potassium Citrate ER 10 MEQ (1080 MG) Tablet Extended Release TAKE 1 TABLET BY MOUTH EVERY DAY Oral Taking Aspirin 81 81 MG Tablet Delayed Release 1 tablet Orally Once a day Taking Gabapentin 300 MG Capsule 1 capsule Orally three times a day Taking Potassium Citrate ER 10 MEQ (1080 MG) Tablet Extended Release TAKE 1 TABLET BY MOUTH EVERY DAY Oral DiscontinuedDoxepin HCl 10 MG Capsule TAKE 1 CAPSULE [...] day Benzonatate 200 MG Capsule 1 capsule Orally Three times a day , stop date 07/28/2025Discontinued Doxepin HCl 10 MG Capsule TAKE 1 CAPSULE BY MOUTH EVERY DAY AT BEDTIME FOR 30 DAYS Discontinued Albuterol Sulfate HFA 108 (90 Base) MCG/ACT Aerosol Solution 1 puff as needed Inhalation every 4 hrs Discontinued Ibuprofen 200 MG Tablet 1 tablet with food or milk as needed Orally every 6 hrs Discontinued Tylenol Extra Strength 500 MG Tablet 1 tablet as needed Orally every 6 hrs Discontinued Calcium 600 + D 600-400 MG-UNIT Tablet 1 tablet with a meal Orally Once a day Discontinued Flonase Allergy Relief 50 MCG/ACT Suspension 1 spray in each nostril Nasally Once a day Discontinued Claritin 10 MG Tablet 1 tablet Orally Once a day Discontinued Atenolol 25 MG Tablet TAKE 2 TABLETS ONCE DAILY Discontinued Sertraline HCl 25 MG Tablet 1 tablet Orally Once a day Discontinued Pantoprazole Sodium 40 MG Tablet Delayed Release 1 tablet Orally Once a day Discontinued Pulmicort Flexhaler 90 MCG/ACT Aerosol Powder Breath Activated Inhalation Discontinued Omeprazole 40 MG Capsule Delayed Release 1 capsule 30 minutes before morning meal Orally Once a day Discontinued Benzonatate 200 MG Capsule 1 capsule Orally Three times a day , stop date 07/28/2025 * Allergies: N o Known Drug AllergyNo Known Food Allergyno[Allergies Verified] Objective: * Vitals: H t: 64, Wt:216, BMI:37.07, BP:136/78, HR:72, RR:16, Ht-cm: 162.56, Wt-k.98. * P ast Orders: Imaging:MAMMOGRAM DIGITAL BI LATERAL SCREEN * Performed Date 12/10/2024 Order Date 12/10/2024 11/18/2021 Result: undefined * Examination: G eneral Examination: GENERAL APPEARANCE: p leasant, well nourished, well developed, in no acute distress, calm and relaxed: obese: woman. HEAD: a traumatic, normocephalic. EYES: e [...] normal, no s3, or vascular bruits. LUNGS: c lear to auscultation . BREASTS: no masses palpable bilaterally. ABDOMEN: b owel sounds normal, no ascites, no organomegaly, no mass: centripital obesity. RECTAL EXAM: n ot examined. MUSCULOSKELETAL: e xtremities unremarkable, no clubbing, cyanosis or edema, Mild decreased range of motion lumbar spine. PERIPHERAL PULSES: n ormal. NEUROLOGIC: a lert and oriented, cranial nerves 2-12 grossly intact, deep tendon reflexes 2+ symmetrical, motor strength normal upper and lower extremities, sensory exam intact. PSYCH: a lert, oriented,: cognitive function intact: speech clear: thought process logical, goal directed. Assessment: * Assessment: 1. E ssential hypertension - I10 (Primary) N otes :Her blood pressure today is 136/78. No change in her regimen was made. We discussed aggressive sodium restriction and weight loss combined with regular physical activity. 2 . M ixed hyperlipidemia - E78.2 N otes :Her total cholesterol was 243 with an LDL of 150 and an HDL elevated at 76. Her ratio is under 4.0. We have discussed the use of a statin. She continues the effort at weight reduction and lipids reduction by diet. 3 . O besity (BMI 30-39.9) - E66.9 N otes :. Her body mass index is 37.. We discussed diet and nutrition today. We made a plan to lose weight at a rate of one half of a pound per week through a diet restricted in fat calories and sodium. 4 . O steopenia after menopause - M81.0 N otes :She is stable and without bone pain. She will continue on current therapy. 5 . O steoarthritis of spine with radiculopathy, cervical region - M47.22 N otes :He is going to have a surgical procedure to repair this next Tuesday. 6 . O steoarthritis of spine with radiculopathy, lumbar region - M47.26 ? N otes :She has mild pain down the right leg, but now has severe pain down the left leg without any antecedent. She declined an offer of gabapentin. She will continue on acetaminophen and ibuprofen. 7 . B ilateral carpal tunnel syndrome - G56.03 N otes :She is free of any symptoms at this time. 8 . N ephrolithiasis - N20.0 N otes :She had an episode of renal colic in September. She will followup with a kiln pusher periodically. A stone was retrieved and she was told it was a calcium stone. We have discussed her calcium intake today. 9 . E ssential tremor - G25.0 N otes :There is been no change in the tremor and is very minor. It will be observed. Plan: * Treatment: * Procedure Codes: * Preventive Medicine: Counseling: C are goal follow-up plan: Counseling for abnormal BMI given Y es Above Normal BMI Follow-up D ietary management education, guidance, and counseling, Dietary needs education * Follow Up: 3 Months (Reason: OV) * Images: * Sign off status: Completed true * Provider: Selin Lindsay MD Date: 0 01/04/2025 Generated for Cassandra patrick/Carolina/Belindaransmitting on: 06/24/2024 03:07 AM EST History and Physical Notes * HPI (History of Present Illness) Category Sub-Category Detail Notes Depression Screening PHQ-9 Little inte rest or pleasure in doing things: Not at all Feeling down, depressed, or hopeless: No t at all Trouble falling or staying asleep, or sl eeping too much: Several days Feeling tired or having little energy: N ot at all Poor appetite or overeating: Not at all Feeling bad about yourself o r that you are a failure, or have let yourself or your family down: Not at all Trouble concentrating on thi ngs, such as reading the newspaper or watching television: Not at all Moving or speaking so slowly that other people could have noticed; or the opposite, being so fidgety or restless that you have been moving around a lot more than usual: Not at all Thoughts that you would be b more off or of hurting yourself in some way: Not at all Total Score: 1 Interpretation: Minimal Depression Fall Risk Screening Fall History Have you had any falls with injury in the past year?: No Have you had two or more falls in the year?: No Fall Risk Assessment:: No falls in the year COVID-19 Screening Questions Have you had any new onset fever, chills, cough, congestion, sore throat, shortness of breath, muscle aches?: No SDOH Questions SDOH Questions In the past year have you been worried about losing your housing?: No In the past year have you or any family members you live with been unable to get any of the following when it was really needed? Check all that apply:: Decline to answer Examination Category Sub-Category Detail Notes General Examination GENERAL APPEARANCE: pleasant , well nourished, well developed, in no acute distress, calm and relaxed: obese: woman HEAD: atraumatic, normocep halic EYES: eomi, perrla, anicte ricarda, conjugate EARS: normal NOSE: septum intact NECK/THYROID: no jugular venous di stention, no carotid bruit, thyroid normal HEART: no clicks, gallops, murmurs, or rubs, regular rhythm, S1, S2 normal, no s3, or vascular bruits LUNGS: clear to auscultatio n ABDOMEN: bowel sounds normal, no ascites, no organomegaly, no mass: centripital obesity NEUROLOGIC: alert and oriented, cranial nerves 2-12 grossly intact, deep tendon reflexes 2+ symmetrical, motor strength normal upper and lower extremities, sensory exam intact SKIN: no suspicious lesion s, anicteric PERIPHERAL PULSES: normal BREASTS: no masses palpable b ilaterally MUSCULOSKELETAL: extremities unremark able, no clubbing, cyanosis or edema, Mild decreased range of motion lumbar spine LYMPH NODES: no enlarged lymph no nathan,spleen normal RECTAL EXAM: not examined PSYCH: alert, oriented,: co gnitive function intact: speech clear: thought process logical, goal directed ORAL CAVITY: normal, unremarkable
--- OUTSIDE RECORDS SUMMARY | 2025-02-08 06:14 | XMS_ITS ---
Author Organization Mahendra Lindsay III, MD Address [address] [address] Care Team Providers Care Aircraft Navigator Name Role Phone Dr. Mahendra Lindsay III Primary Care Provider REASON FOR VISIT Sleep Study Social History Sex Assigned At : Social History Observation Description Sex Assigned At Female Encounters Encounter Location Date Provider Diagnosis Mahendra Lindsay III, MD [address] [place] [address] [place] [address] 02/08/2025 Mahendra Lindsay Daytime somnolence R40.0 ; Snoring R06.83 and Obesity (BMI 30-39.9) E66.9 Assessments Encounter Date Diagnosis (ICD Code) Assessment Notes Treatment Notes Treatment Clinical Notes 02/08/2025 Daytime somnolence (ICD-10 - R40.0) 02/08/2025 Snoring (ICD-10 - R06.83) 02/08/2025 Obesity (BMI 30-39.9) (ICD-10 - E66.9) Plan Of Treatment Pending Test Test Name Order Date RT sleep home study type III 02/08/2025 Next Appt Details Provider Name:Mahendra Lindsay , 05/09/2025 09:00:00 AM, [address] [place] [address] [place], [address], Provider Name:Mahendra Lindsay , 01/07/2026 09:00:00 AM, [address] [place] [address] [place], [address], Progress Notes * GAYLE VAZQUEZ DDOB:[birth year] (69 yo F)Acc No.[id number]:02/08/2025 Patient: AGYLE POWERS :1955 A ge:69 Y S ex:Female Address:[address] [place] [address], [address] Subjective: * Chief Complaints: * S leep Study * Medical History: * Surgical History: * Hospitalization/Major Diagno stic Procedure: * Medications: Objective: * Vitals: * Physical Examination: Assessment: * Assessment: 1. D aytime somnolence - R40.0 2 . S noring - R06.83 3 .?Obesity (BMI 30-39.9) - E66.9 Plan: * Treatment: 2. S noring I maging: RT sleep home study type III 3. O besity (BMI 30-39.9) I maging: RT sleep home study type III * Procedure Codes: * true * Date: Generated for Cassandra patrick/Carolina/Marthasmmiriam on: 06/24/2024 03:09 AM EST
--- OUTSIDE RECORDS SUMMARY | 2025-02-19 05:02 | XMS_ITS ---
Author Organization Mahendra Lindsay III, MD Address [address] [place] [address] Care Team Providers Care Secondary Teacher Name Role Phone Dr. Mahendra Lindsay III Primary Care Provider [phone] REASON FOR VISIT Sleep Study Approval Social History Sex Assigned At : Social History Observation Description Sex Assigned At Female Encounters Encounter Location Date Provider Diagnosis Mahendra Lindsay III, MD [address] [place] [address] [place] [address] 02/19/2025 Mahendra Lindsay Plan Of Treatment Next Appt Details Provider Name:Mahendra Lindsay , 05/09/2025 09:00:00 AM, [address] [place] [address] [place], [address], Provider Name:Mahendra Lindsay , 01/07/2026 09:00:00 AM, [address] [place] [address] [place], [address], Progress Notes * GAYLE VAZQUEZ DDOB:[birth year] (70 yo F)Acc No.[id number]:02/19/2025 Patient: Selin CHAOSHASHANKGAYLE :1955 A ge:69 Y S ex:Female Address:[facility] [place], [address] * true * Date: Generated for Printi ng/Faxing/eTransmitting on: 06/24/2024 03:06 AM EST
--- OUTSIDE RECORDS SUMMARY | 2025-03-04 04:20 | XMS_ITS ---
Author Organization Mahendra Lindsay III, MD Address [address] [facility] [place] [address] Care Team Providers Care Solutions Delivery Consultant Name Role Phone Dr. Mahendra Lindsay III Primary Care Provider REASON FOR VISIT Message Social History Sex Assigned At : Social History Observation Description Sex Assigned At Female Encounters Encounter Location Date Provider Diagnosis Mahendra Lindsay III, MD [address] [place] [address] [place] [phone] 03/04/2025 Mahendra Lindsay Plan Of Treatment Next Appt Details Provider Name:Mahendra Lindsay , 05/09/2025 09:00:00 AM, [address] [place] [address] [place], [phone], Provider Name:Mahendra Lindsay , 01/07/2026 09:00:00 AM, [address] [place] [address] [place], [phone], Progress Notes * GAYLE VAZQUEZ DDOB:[birth year] (70 yo F)Acc No.[id number]:03/04/2025 Patient: Selin CHAOSHASHANKGAYLE :1955 A ge:70 Y S ex:Female Address:[facility] [place], [address] * true * Date: Generated for Printi ng/Faxing/eTransmitting on: 06/24/2024 03:08 AM EST
--- OUTSIDE RECORDS SUMMARY | 2025-04-18 07:15 | XMS_ITS ---
Author Organization Mahendra Lindsay III, MD Address [address] [place] [address] Care Team Providers Care Shaker Plate Operator Name Role Phone Dr. Mahendra Lindsay III Primary Care Provider REASON FOR VISIT Follow up Social History Sex Assigned At : Social History Observation Description Sex Assigned At Female Encounters Encounter Location Date Provider Diagnosis Mahendra Lindsay III, MD [address] [place] [address] [place] [address] 04/18/2025 Mahendra Lindsay Plan Of Treatment Next Appt Details Provider Name:Mahendra Lindsay , 05/09/2025 09:00:00 AM, [address] [place] [address] [place], [address], Provider Name:Mahendra Lindsay , 01/07/2026 09:00:00 AM, [address] [place] [address] [address] [facility] [place], [address], Progress Notes * GAYLE VAZQUEZ DDOB:[birth year] (70 yo F)Acc No.[id number]:04/18/2025 Progress Notes Patient: Selin GAYLE BRYANT Provider: Selin Lindsay MD :1955 A ge:70 Y S ex:Female Date:04/18/2025 Address:[facility] [place], [id number] Subjective: * Chief Complaints: * 1 . Follow up. * Medical History: Objective: * Vitals: Assessment: Plan: * Treatment: * Images: * The named appointment provid er may or may not be the originator of this progress note, and it is not deemed complete until electronically signed by the appointment provider. Sign off status: Pending * Provider: Selin Lindsay MD Date: 06/18/2024 Generated for Cassandra patrick/Carolina/Daniela on: 06/24/2024 03:06 AM EST
--- OUTSIDE RECORDS SUMMARY | 2025-04-23 04:30 | XMS_ITS ---
Author Organization Mahendra Lindsay III, MD Address [address] [address] Care Team Providers Care Drafting Clerk Name Role Phone Dr. Mahendra Lindsay III Primary Care Provider Allergies Allergen (clinical drug ingredient) Drug/Non Drug Allergy documented on EMR Reaction Allergy Type Onset Date Status No Known Drug Allergy Unknown Drug Allergy Active No Known Food Allergy Unknown Drug Allergy Active REASON FOR VISIT Sore throat x 3 days, Headache x 3 days, Chronic cough, Hyperlipidemia, Hypertension, Carpal tunnelsyndrome, Obesity, Cervical radiculopathy Medications Medication SIG (Take, Route, Frequency, Duration) Notes Start Date End Date Status Potassium Citrate ER 10 MEQ (1080 MG) TAKE 1 TABLET BY MOUTH EVERY DAY Oral Active Gabapentin 300 MG 1 capsule Orally thr ee times a day 08/02/2024 Active Aspirin 81 81 MG 1 tablet Orally Once a day Active Social History Tobacco Use: Social History Observation Description Date Details (start date - stop date) Never Smoker NA - NA Sex Assigned At : Social History Observation Description Sex Assigned At Female Tobacco Control (Standard) Question Answer Notes Tobacco use: Nonsmoker Additional Findings: Tobacco non-user Aggressive nonsmoker Problems Problem Type SNOMED Code ICD Code Onset Dates Problem Status W/U Status Risk Notes Problem [id number] Sore throat (J02.9) Active confirmed The pain is reproduced by mild pressure over each carotid artery. The pharynx and the thyroid are free of pain. Comprehensive blood work has been ordered with a sedimentation rate. The temporal arteries were not painful and could not be palpated Vital Signs Temperature 97.7 degrees Fahrenheit 04/23/20 25 Blood pressure systolic 135 mm Hg 04/23/20 25 Blood pressure diastolic 83 mm Hg 025 Heart Rate 83 /min 04/23/2025 Height 64 in 04/23/2025 Weight 204 lbs 04/23/2025 BMI 35.01 kg/m2 04/23/2025 Encounters Encounter Location Date Provider Diagnosis Mahendra Lindsay III, MD [address] [place] [address] [address] [place], [place] [address] 04/23/2025 Mahendra Lindsay Mixed hyperlipidemia E78.2 ; Sore throat J02.9 ; Obesity (BMI 30-39.9) E66.9 ; Essential hypertension I10 ; Nephrolithiasis N20.0 ; Bilateral carpal tunnel syndrome G56.03 ; Osteopenia after menopause M81.0 ; Essential tremor G25.0 ; Chronic GERD K21.9 and Chronic cough R05.3 Assessments Encounter Date Diagnosis (ICD Code) Assessment Notes Treat ment Notes Treatment Clinical Notes 04/23/2025 Mixed hyperlipidemia (ICD-10 - E78.2) Her total cholesterol was 243 with an LDL of 150 and an HDL elevated at 76. Her ratio is under 4.0. We have discussed the use of a statin. She continues the effort at weight reduction and lipids reduction by diet. 04/23/2025 Sore throat (ICD-10 - J02.9) The pain is reproduced by mild pressure over each carotid artery. The pharynx and the thyroid are free of pain. Comprehensive blood work has been ordered with a sedimentation rate. The temporal arteries were not painful and could not be palpated 04/23/2025 Obesity (BMI 30-39.9 ) (ICD-10 - E66.9) She has lost 12 pounds through diet and exercise. Her body mass index remains elevated. We discussed diet and nutrition today. She was encouraged to continue weight loss. 04/23/2025 Essential hypertension (ICD-10 - I10) Her blood pressure today is within range. She was encouraged to continue losing weight and restricting sodium. 04/23/2025 Nephrolithiasis (ICD-10 - N20.0) She had an episode of renal colic in September. She will followup with a automobile salesman periodically. A stone was retrieved and she was told it was a calcium stone. We have discussed her calcium intake today. 04/23/2025 Bilateral carpal tunnel syndrome (ICD-10 - G56.03) She is free of any symptoms at this time. 04/23/2025 Osteopenia after menopause (ICD-10 - M81.0) She is stable and without bone pain. She will continue on current therapy. I have recommended she take calcium carbonate 500 mg twice a day as well as 1000 units of vitamin D3. 04/23/2025 Essential tremor (ICD-10 - G25.0) There is been no change in the tremor and is very minor. It will be observed. 04/23/2025 Chronic GERD (ICD-10 - K21.9) She is going to take 40 mg of omeprazole daily. 04/23/2025 Chronic cough (ICD-1 0 - R05.3) She has requested to be referred to specialist to see if she could be rid of the cough. I have sent her to an liquor bridge operator helper and back to ENT. A chest x-ray has been ordered. Her oxygen saturation was 99%. Plan Of Treatment Medication Medication Name Sig Start Date Stop Date Notes Potassium Citrate ER 10 MEQ (1080 MG) TAKE 1 TABLET BY MOUTH EVERY DAY Oral Gabapentin 300 MG 1 capsule Orally thr ee times a day 08/02/2024 Aspirin 81 81 MG 1 tablet Orally Once a day Pending Test Test Name Order Date PROFILE, FASTING (COMPREHENSIVE METABOLI C) 04/23/2025 CBC w DIFF 04/23/2025 SED RATE (ESR) 04/23/2025 Lipid Panel 04/23/2025 Routine Culture 04/23/2025 Next Appt Details Follow Up: 3 Weeks, Reason: OV Provider Name:Mahendra Lindsay , 05/09/2025 09:00:00 AM, [address] [place] [address] [address], [place], [address], Provider Name:Mahendra Lindsay , 01/07/2026 09:00:00 AM, [address] [place] [address] [address], [place], [address], Progress Notes * GAYLE VAZQUEZ DDOB:[birth year] (70 yo F)Acc No.[id number]:04/23/2025 Progress Notes Patient: GAYLE POWERS Provider: Selin Lindsay MD :1955 A ge:70 Y S ex:Female Date:04/23/2025 Address:[id number] Subjective: * Chief Complaints: * S ore throat x 3 daysHeadache x 3 daysChronic coughHyperlipidemiaHypertensionCarpal tunnel syndromeObesityCervical radiculopathy * HPI: C OVID-19 Screening: S he returns for a scheduled visit for medical management. She says she has had a sore throat for 2 days but no fever. She says it does not feel like a typical sore throat. On examination today the tenderness was over the carotid arteries. The thyroid was normal. She recently had an upper endoscopy with Dr. Iker Walsh who told her everything was normal and gave her medication to suppress her cough. She cannot remember the name of the medication. She is going to call us with that. She was continued on the benzonatate. Questions H ave you had any new onset fever, chills, cough, congestion, sore throat, shortness of breath, muscle aches? Y es Sore Throat * ROS: G eneral/Constitutional: pain B ilateral neck pain. C hills d enies. F atigue a dmits. F ever d enies. E NT: Decreased hearing d enies. R espiratory: Cough d enies. C ardiovascular: Chest pain with exertion d enies. D yspnea on exertion?denies. S hortness of breath d enies. G astrointestinal: Constipation o ccasional. D ecreased appetite d enies. D iarrhea d enies. H eartburn a ggravated by food. N ausea d enies. R ectal bleeding [...] 10/2019Biopsy done on left knee Dr. Ventura Banana Grader eft wrist surgery 3Kidney stone removed 08/2024 * Hospitalization/Major Diagno stic Procedure: r enal colic 12/30/17chest pain [facility] 12/2020No history * Family History: F ather: alive 92 yrs, CAD, diagnosed with CVD. M other: 85 yrs, AODM, breast cancer age 77, diagnosed with CVD, Cancer, DM, HTN. C hildren: alive. S iblings: alive. P [...] dditional Findings: Tobacco non-user A ggressive nonsmoker S he works at [employer] with no exposures. She has been to Eddie for 40 years. She has 1 healthy child and 1 healthy grandchild. {'Long Term': 'The patient is retiring and will be [...] 1 TABLET BY MOUTH EVERY DAY Oral Medication List reviewed and reconciled with the patientTaking Aspirin 81 81 MG Tablet Delayed Release 1 tablet Orally Once a day Taking Gabapentin 300 MG Capsule 1 capsule Orally three times a day Taking Potassium Citrate ER 10 MEQ (1080 MG) Tablet Extended Release TAKE 1 TABLET BY MOUTH EVERY DAY Oral Medication List reviewed and reconciled with the patient * Allergies: N o Known Drug AllergyNo Known Food Allergyno[Allergies Verified] Objective: * Vitals: H t: 64, Wt:204, BMI:35.01, BP:135/83, HR:83, Temp:97.7, Ht-cm: 162.56, Wt-k.53. * Examination: G eneral Examination: GENERAL APPEARANCE: p leasant, well nourished, well developed, in no acute distress, calm and relaxed: obese: woman. HEAD: a traumatic, normocephalic. EYES: e oleg, perrla, anicteric, conjugate. EARS: n ormal. NOSE: s eptum intact. ORAL CAVITY: n ormal, unremarkable. NECK/THYROID: n o jugular venous distention, no carotid bruit, thyroid normal, decreased range of motion in all directions but without pain. LYMPH NODES: n o enlarged lymph nodes,spleen normal. SKIN: n o suspicious lesions, anicteric. HEART: n o clicks, gallops, murmurs, or rubs, regular rhythm, S1, S2 normal, no s3, or vascular bruits. LUNGS: c lear to auscultation . BREASTS: N ot examined. ABDOMEN: b owel sounds normal, no ascites, no organomegaly, no mass: centripital obesity. RECTAL EXAM: n ot examined. MUSCULOSKELETAL: D ecreased range of motion lumbar spine and cervical spine. PERIPHERAL PULSES: n ormal. NEUROLOGIC: a lert and oriented, cranial nerves 2-12 grossly intact, deep tendon reflexes 2+ symmetrical, motor strength normal upper and lower extremities, sensory exam intact. PSYCH: a lert, oriented. Assessment: * Assessment: 1. S ore throat - J02.9 (Primary) N otes :The pain is reproduced by mild pressure over each carotid artery. The pharynx and the thyroid are free of pain. Comprehensive blood work has been ordered with a sedimentation rate. The temporal arteries were not painful and could not be palpated 2 . M ixed hyperlipidemia - E78.2 N otes :Her total cholesterol was 243 with an LDL of 150 and an HDL elevated at 76. Her ratio is under 4.0. We have discussed the use of a statin. She continues the effort at weight reduction and lipids reduction by diet. 3 . O besity (BMI 30-39.9) - E66.9 N otes :She has lost 12 pounds through diet and exercise. Her body mass index remains elevated. We discussed diet and nutrition today. She was encouraged to continue weight loss. 4 . E ssential hypertension - I10 N otes :Her blood pressure today is within range. She was encouraged to continue losing weight and restricting sodium. 5 . N ephrolithiasis - N20.0 N otes :She had an episode of renal colic in September. She will followup with a automobile salesman periodically. A stone was retrieved and she was told it was a calcium stone. We have discussed her calcium intake today. 6 . B ilateral carpal tunnel syndrome - G56.03 N otes :She is free of any symptoms at this time. 7 . O steopenia after menopause - M81.0 N otes :She is stable and without bone pain. She will continue on current therapy. I have recommended she take calcium carbonate 500 mg twice a day as well as 1000 units of vitamin D3. 8 . E ssential tremor - G25.0 N otes :There is been no change in the tremor and is very minor. It will be observed. 9 . C hronic GERD - K21.9 N otes :She is going to take 40 mg of omeprazole daily. 1 0. C hronic cough - R05.3 N otes :She has requested to be referred to specialist to see if she could be rid of the cough. I have sent her to an liquor bridge operator helper and back to ENT. A chest x-ray has been ordered. Her oxygen saturation was 99%. Plan: * Treatment: 2. M ixed hyperlipidemia Continue Aspirin 81 Tablet Delayed Release, 81 MG, 1 tablet, Orally, Once a day; C ontinue Gabapentin Capsule, 300 MG, 1 capsule, Orally, three times a day; C ontinue Potassium Citrate ER Tablet Extended Release, 10 MEQ (1080 MG), TAKE 1 TABLET BY MOUTH EVERY DAY, Oral. L AB: PROFILE, FASTING (COMPREHENSIVE METABOLIC) L AB: CBC w DIFF L AB: SED RATE (ESR) L AB: Lipid Panel 3. O besity (BMI 30-39.9) L AB: PROFILE, FASTING (COMPREHENSIVE METABOLIC) L AB: CBC w DIFF L AB: SED RATE (ESR) L AB: Lipid Panel 4. E ssential hypertension L AB: PROFILE, FASTING (COMPREHENSIVE METABOLIC) L AB: CBC w DIFF L AB: SED RATE (ESR) L AB: Lipid Panel * Procedure Codes: * Preventive Medicine: Counseling: [...] Other reason not done * Follow Up: 3 Weeks (Reason: OV) * Images: * Sign off status: Completed true * Provider: Selin Lindsay MD Date: 06/23/2024 Generated for Cassandra patrick/[place]/eTransmitting on: 06/24/2024 03:05 AM EST History and Physical Notes * HPI (History of Present Illness) Category Sub-Category Detail Notes COVID-19 Screening Questions Have you had any new onset fever, chills, cough, congestion, sore throat, shortness of breath, muscle aches?: Yes Sore Throat Examination Category Sub-Category Detail Notes General Examination GENERAL APPEARANCE: pleasant , well nourished, well developed, in no acute distress, calm and relaxed: obese: woman HEAD: atraumatic, normocep halic EYES: eomi, perrla, anicte ricarda, conjugate EARS: normal NOSE: septum intact NECK/THYROID: no jugular venous di stention, no carotid bruit, thyroid normal, decreased range of motion in all directions but without pain HEART: no clicks, gallops, murmurs, or rubs, [...] PERIPHERAL PULSES: normal BREASTS: Not examined MUSCULOSKELETAL: Decreased range of m otion lumbar spine and cervical spine LYMPH NODES: no enlarged lymph no nathan,spleen normal RECTAL EXAM: not examined PSYCH: alert, oriented ORAL CAVITY: normal, unremarkable
--- OUTSIDE RECORDS SUMMARY | 2025-04-24 03:05 | XMS_ITS | Encounter Summary ---
Author Organization [facility] Address [address] [place] [phone] Phone Care Team Providers Care Protective Officer Name Role Phone Mahendra Lindsay MD Primary Care Provider [phone] Encounter Details Date Type Department Care Team (Late st Contact Info) Description 02/15/2023 Procedure Pass OR Admitting Dept - [facility] Department [address] [place] [id number] Social History Tobacco Use Types Packs/Day Years Used Date Smoking Tobacco: Former Cigarettes Q uit: 1970 Smokeless Tobacco: Never Alcohol Use Standard Drinks/Week Comments Yes 2 (1 standard drink = 0.6 oz pur e alcohol) Education Answer Date Recorded Are you interested in more education? Not on neil e 02/11/2023 Are you concerned about learning? Not on file 02/11/2023 No 02/11/2023 No 02/11/2023 Digital Access Answer Date Recorded No 02/11/2023 No 02/11/2023 Reliable internet access at home? Not on file 02/11/2023 Device with a working camera? Not on file Comments No Sex and Gender Information Value Date Recorded Sex Assigned at Not on file Legal Sex Female 8:49 AM EDT Gender Identity Not on file Sexual Orientation Not on file documented as of this encounter Plan of Treatment Not on file documented as of this encounter Visit Diagnoses Not on filedocumented in this encounter Care Teams Protective Officer Relationship Specialty Start Date End Date Mahendra Lindsay MD [address] [place] [address] [place] [address] PCP - General Medical Oncology 02/11/23 documented as of this encounter Additional Source Comments The information contained in this document represents components of the legal health record. It is not the complete legal health record.[facility]
--- OUTSIDE RECORDS SUMMARY | 2025-04-24 03:07 | XMS_ITS | Patient Health Record ---
Author Organization Mahendra Lindsay III, MD Address [address] [place] [address] Care Team Providers Care Dehydrogenation Supervisor Name Role Phone Dr. Mahendra Lindsay III Primary Care Provider Allergies Allergen (clinical drug ingredient) Drug/Non Drug Allergy documented on EMR Reaction Allergy Type Onset Date Status No Known Drug Allergy Unknown Drug Allergy Active No Known Food Allergy Unknown Drug Allergy Active Results Component Value Reference Range Notes XR CHEST 2 VIEW PA & LAT Reviewed date:08/02/2024 10:45:59 AM Interpretation: Performing Lab: Notes/Report: US thyroid Reviewed date:03/25/2025 04:42:46 AM Interpretation: Performing Lab: Notes/Report: [address] [address] Ultrasound Report Signed Patient: Eric Cintron MR#: [id number] : 1955 Acct:[id number] Age/Sex: 69 / F ADM Date: 06/11/24 Loc: HO.US Attending Dr: Mahendra Lindsay MD Ordering Physician: Mahendra Lindsay MD Date of Service: 06/11/24 Procedure(s): US thyroid Accession Number(s): [id number] cc: Mahendra Lindsay MD EXAMINATION: US THYROID CLINICAL INFORMATION: Tender thyroid. COMPARISON: None available. TECHNIQUE: Linear transducer grayscale and color Doppler examination with attention to the region of the thyroid. FINDINGS: SIZE: Measurements of the thyroid lobes and nodules are given in sagittal, anteroposterior and transverse dimensions respectively. Right Thyroid Lobe: 4.2 x 1.3 x 1 point cm, volume 5 mL. Parenchyma: The gland echotexture is normal. Thyroid vascularity is normal. Left Thyroid Lobe: 3.7 x 1.4 x 1.8 cm, volume 4.8 mL. Parenchyma: The gland echotexture is normal. Thyroid vascularity is normal. Isthmus: 0.3 cm in maximum AP dimension. Estimated total number of nodules greater than or equal to 1 cm: 9. Yard Crane Operator nodules are described as follows: There are no thyroid nodules visualized. However there are multiple anechoic very small cysts. NODES: No lymphadenopathy is seen in the tissue surrounding the thyroid gland. US/US thyroid IMPRESSION: Unremarkable thyroid ultrasound. ACR TI-RADS RECOMMENDATION REFERENCE: Ultrasound-guided fine-needle aspiration, followup ultrasound, no further follow up. * TR1 (0 point) and TR2 (2 points): No FNA or follow up. * TR3 (3 points): FNA if more than or equal to 2.5 cm in maximum dimension, followup ultrasound in 1, 3 and 5 years if 1.5 to 2.4 cm in maximum dimension. * TR4 (4-6 points): FNA if more than or equal to 1.5 cm in maximum dimension, followup ultrasound in 1, 2, 3 and 5 years if 1 to 1.4 cm in maximum dimension. * TR5 (more than or equal to 7 points): FNA if more than or equal to 1 cm in maximum dimension, followup ultrasound every year for 5 years if 0.5 to 0.9 cm in maximum dimension. * TR3, TR4 or TR5 nodules that are below the size threshold for followup receive no follow up. Electronically signed by: Fish Monsalve MD 06/11/2024 11:44 AM EST Dictated By: Fish Monsalve MD Signed By: <Electronically signed by Fish Monsalve MD in OV> 06/11/24 1144 DD/ 1110 TD/TT: 06/11/24 1119 Wildlife Ecology Professor: [address] [address] Ultrasound Report Signed Patient: Fransisca Cintron MR#: [id number] : 1955 Acct:[id number] Age/Sex: 69 / F ADM Date: 06/11/24 Loc: HO.US Attending Dr: Mahendra Lindsay MD Ordering Physician: Mahendra Lindsay MD Date of Service: 06/11/24 Procedure(s): US thyroid Accession Number(s): [id number] cc: Mahendra Lindsay MD EXAMINATION: US THYROID CLINICAL INFORMATION: Tender thyroid. COMPARISON: None available. TECHNIQUE: Linear transducer gr ayscale and color Doppler examination with attention to the reg ion of the thyroid. FINDINGS: SIZE: Measurements o f the thyroid lobes and nodules are given in sagittal, anteropost erior and transverse dimensions respectively. Right Thyroid Lobe: 4.2 x 1.3 x 1 point cm, volume 5 mL. Parenchyma: The glan d echotexture is normal. Thyroid vascularity is normal. Left Thyroid Lobe: 3 .7 x 1.4 x 1.8 cm, volume 4.8 mL. Parenchyma: The glan d echotexture is normal. Thyroid vascularity is normal. Isthmus: 0.3 cm in m aximum AP dimension. Estimated total numb er of nodules greater than or equal to 1 cm: 9. Yard Crane Operator nodul es are described as follows: There are no thyroid nodules visualized. However there are multiple anechoic very small cysts. NODES: No lymphadeno bradly is seen in the tissue surrounding the thyroid gland. U S/US thyroid IMPRESSION: Unremarkable thyroid ultrasound. ACR TI-RADS RECOMMEN DATION REFERENCE: Ultrasound-guided fi ne-needle aspiration, followup ultrasound, no further follow up. * TR1 (0 point) and TR2 (2 points): No FNA or follow up. * TR3 (3 points): FN A if more than or equal to 2.5 cm in maximum dimension, followup ultrasound in 1, 3 and 5 years if 1.5 to 2.4 cm in maximum dimension. * TR4 (4-6 points): FNA if more than or equal to 1.5 cm in maximum dimension, followup ultrasound in 1, 2, 3 and 5 years if 1 to 1.4 cm in maximum dimension. * TR5 (more than or equal to 7 points): FNA if more than or equal to 1 cm in maximum dimens ion, followup ultrasound every year for 5 years if 0.5 to 0.9 cm in max imum dimension. * TR3, TR4 or TR5 no dules that are below the size threshold for followup receive no follow up. Electronically chrissy d by: Fish Monsalve MD 06/11/2024 11:44 AM EST Dictated By: Fish Monsalve MD Signed By: <Electron ically signed by Fish Monsalve MD in OV> 06/11/24 1144 DD/ 1110 TD/TT: 06/11/24 1119 Wildlife Ecology Professor: YAIR MAMMOGRAM DIGITAL BILATERAL SCREEN Reviewed date:12/10/2024 11:42:03 AM Interpretation:undefined Performing Lab: Notes/Report: undefined Reason For Referral Reason allergic cough worse paul Diagnosis 1 Chronic cough (R05.3 ) Referral Organization Mahendra Lindsay III, MD Referring Provider First Name Mahendra Referring Provider Last Name Angélica Referring Provider Speciality Internal edicine Referred Provider Janet Brown Referred Provider Specialty Allergy/Immu nology General Notes Taryn Kaiser CMA 06/26 02:16:57 PM >Ref/demo/progress note faxed to [facility] Amber 08/07/2024 10:04:54 AM >Patient is asking this referral to be closed as she does not remember why she was referred there. She was referred to ENT on 08/02/24 she will be calling them to schedule an appointment with them. Referral being closed Referral Priority Routine Reason persistant cough wit h hoarseness Diagnosis 1 Acute cough (R05.1) Diagnosis 2 Hoarseness (R49.0) Referral Organization Mahendra Lindsay III, MD Referring Provider First Name Mahendra Referring Provider Last Name Angélica Referring Provider Speciality Internal edicine Referred Provider [facility] Referred Provider Specialty Otolaryngolo gy General Notes Taryn Kaiser CMA 08/06 11:01:45 AM >[facility]demo[facility] 08/07/2024 10:06:32 AM > Patient stated she is going to contact their office to schedule an appointment as she was seen there in the past., Taryn Kaiser CMA 08/14/2024 03:26:49 PM >called ENT pt is scheduled to see Bhavani BRYAN on 05/06/2025 Referral Priority Routine Referral Appointment Date 05/06/2025 Reason chronic GERD chron ic cough Diagnosis 1 Chronic GERD (K21.9) Diagnosis 2 Chronic cough (R05.3 ) Referral Organization Mahendra Lindsay III, MD Referring Provider First Name Mahendra Referring Provider Last Name Angélica Referring Provider Speciality Internal M edicine Referred Provider JESSIKA WALSH Referred Provider Specialty Gastroentero logy General Notes Taryn Kaiser [facility] 10/31 10:50:24 AM > [facility]demo[facility] there before by Awilda Bobby Suzanne [facility] 10/31/2024 10:54:38 AM > Pt called and made aware of this and told to call the office to set up her appt, Taryn Kaiser CMA 11/14/2024 02:28:14 PM > spoke to patient she stated she has appt at the end of November 2024 to see [employer], Taryn Kaiser [facility] 11/14/2024 02:34:33 PM >I called [facility] they stated pt has appt with Dr Walsh on 01/02/2025 . Referral Priority Routine Referral Appointment Date 01/02/2025 Medications Medication SIG (Take, Route, Frequency, Duration) Notes Start Date End Date Status Potassium Citrate ER 10 MEQ (1080 MG) TAKE 1 TABLET BY MOUTH EVERY DAY Oral Active Gabapentin 300 MG 1 capsule Orally thr ee times a day 08/02/2024 Active Aspirin 81 81 MG 1 tablet Orally Once a day Active Immunizations Vaccine Route Administration Date Status Comme nts COVID PFIZER Unknown 09/17/2020 Administered COVID PFIZER Unknown 10/08/2020 Administered COVID PFIZER Unknown 09/19/2021 Administered COVID PFIZER Unknown 04/11/2021 Administered Influenza, quad Unknown 03/03/2020 Administered Influenza no Preserv 3 and > Unknown 03/24/2015 Adminis tered PCV13 Unknown 01/23/2018 Administered Influenza no Preserv 3 and > Unknown 03/22/2021 Adminis tered COVID PFIZER Unknown 03/05/2022 Administered SHINGRIX Unknown 10/08/2017 Administered FLuzone HD PF Unknown 03/05/2022 Administered Influenza no Preserv 3 and > Unknown 03/10/2016 Adminis tered Influenza no Preserv 3 and > Unknown 03/06/2014 Adminis tered Influenza, quad Unknown 02/26/2017 Administered Influenza, quad Unknown 01/23/2018 Administered Influenza no Preserv 3 and > Unknown 02/18/2019 Adminis tered PCV20 Unknown 11/23/2023 Administered COVID Pfizer Bivalent Unknown 01/05/2023 Administered Comirnaty Pfizer COVID-19 12+ Unknown 03/29/2023 Admini stered COVID Pfizer Bivalent Unknown 03/05/2022 Administered COVID-19 Moderna SPIKEVAX Unknown 09/13/2024 Administer ed RSV vaccine, bivalent, prote in subunit RSV prefusion F Unknown 05/07/2023 Administered Fluzone High-Dose (HD-IIV3) Unknown 02/11/2024 Administ ered COVID-19 Moderna SPIKEVAX Unknown 02/11/2024 Administer ed Tdap Unknown 04/01/2024 Administered Fluzone High-Dose (HD-IIV3) Unknown 02/20/2025 Administ ered Social History Tobacco Use: Social History Observation [...] ast year? No Points 0 Interpretation Negative Problems Problem Type SNOMED Code ICD Code Onset Dates Problem Status W/U Status Risk Notes Problem 861441809 Sore throat (J02.9) Active confirmed The pain is reproduced by mild pressure over each carotid artery. The pharynx and the thyroid are free of pain. Comprehensive blood work has been ordered with a sedimentation rate. The temporal arteries were not painful and could not be palpated Problem Vitamin deficiency (46974075) Vitamin deficiency, unspecified (E56.9) Active confirmed Problem 241120997 Mixed hyperlipidemia (E78.2) Active confirmed Her total cholesterol was 243 with an LDL of 150 and an HDL elevated at 76. Her ratio is under 4.0. We have discussed the use of a statin. She continues the effort at weight reduction and lipids reduction by diet. Problem 22233051 Generalized anxiety disorder (F41.1) Active confirmed She was continu ed on sertraline with follow-up visits. Problem 705334266 Essential tremor (G25.0) Active confirmed There is been n o change in the tremor and is very minor. It will be observed. Problem 282337884 Obesity (BMI 30-39.9) (E66.9) Active confirmed She has los t 12 pounds through diet and exercise. Her body mass index remains elevated. We discussed diet and nutrition today. She was encouraged to continue weight loss. Problem 49613103 Essential hypertension (I10) Active confirmed Her blood press ure today is within range. She was encouraged to continue losing weight and restricting sodium. Problem 316013913 Osteoarthritis of spine with radiculopathy, cervical region (M47.22) Active confirmed He is going to have a surgical procedure to repair this next Tuesday. Problem 83694750 Nephrolithiasis (N20.0) Active confirmed She had an epis ode of renal colic in September. She will followup with a program support specialist periodically. A stone was retrieved and she was told it was a calcium stone. We have discussed her calcium intake today. Problem Daytime somnolence (1306812853 00) Daytime somnolence (R40.0) Active confirmed Problem 351127223 Chronic GERD (K21.9) Active confirmed She is going to take 40 mg of omeprazole daily. Problem 733566402 Osteopenia after menopause (M81.0) Active confirmed She is stable a nd without bone pain. She will continue on current therapy. I have recommended she take calcium carbonate 500 mg twice a day as well as 1000 units of vitamin D3. Problem 34844151 Bilateral carpal tunnel syndrome (G56.03) Active confirmed She is free of any symptoms at this time. Problem 227064208 Acute viral bronchitis (J20.8) Active confirmed She continues t o have congestion and a refractory cough. I have given her a prescription for benzonatate. She will call me in 3 days to report on its efficacy. Problem 86673306 Chronic cough (R05.3) Active confirmed She has request ed to be referred to specialist to see if she could be rid of the cough. I have sent her to an humanities department chair and back to ENT. A chest x-ray has been ordered. Her oxygen saturation was 99%. Problem 95106516 Neck pain, acute (M54.2) Active confirmed The pain in her neck has been present for a week. It was reproduced by pressure on the right lobe of the thyroid as well as the sternocleidomastoid muscle. There was no adenopathy and no palpable mass. Her neck was supple. The oral cavity was unremarkable and she denies having a sore throat. She will be evaluated for thyroiditis. She will use ibuprofen. Problem 611092317 Trigger finger, unspecified finger, unspecified laterality (M65.30) Active confirmed The surgery kilo l be done in January of 2024. It is delayed because of a steroid injection. Problem 016902693 Thyroid pain (E07.89) Active confirmed Problem 77994080 Thyroiditis, painless (E06.1) Active confirmed Vital Signs Heart Rate 83 /min 04/23/2025 Temperature 97.7 degrees Fahrenheit 04/23/2025 Respiratory Rate 16 /min 01/04/2025 Blood pressure diastolic 83 mm Hg 04/23/2025 Height 64 in 04/23/2025 Blood pressure systolic 135 mm Hg 04/23/2025 Weight 204 lbs 04/23/2025 BMI 35.01 kg/m2 04/23/2025 Encounters Encounter Location Date Provider Diagnosis Mahendra Lindsay III, MD [address] [place] [address] [place] [address] 05/29/2024 Mahendra Lindsay Mixed hyperlipidemia E78.2 ; Essential hypertension I10 ; Chronic cough R05.3 ; Neck pain, acute M54.2 and Obesity (BMI 30-39.9) E66.9 Mahendra Lindsay III, MD [address] [place] [address] [place] [address] 08/02/2024 Mahendra Lindsay Mixed hyperlipidemia E78.2 ; Acute viral bronchitis J20.8 ; Essential hypertension I10 ; Osteopenia after menopause M81.0 ; Obesity (BMI 30-39.9) E66.9 ; Osteoarthritis of spine with radiculopathy, cervical region M47.22 and Generalized anxiety disorder F41.1 Mahendra Lindsay III, MD [address] [place] [address] [place] [address] 01/04/2025 Mahendra Lindsay Mixed hyperlipidemia E78.2 ; Essential hypertension I10 ; Obesity (BMI 30-39.9) E66.9 ; Osteopenia after menopause M81.0 ; Osteoarthritis of spine with radiculopathy, cervical region M47.22 ; Osteoarthritis of spine with radiculopathy, lumbar region M47.26 ; Bilateral carpal tunnel syndrome G56.03 ; Nephrolithiasis N20.0 and Essential tremor G25.0 Mahendra Lindsay III, MD [address] [place] [address] [place] [address] 04/23/2025 Mahendra Lindsay Mixed hyperlipidemia E78.2 ; Sore throat J02.9 ; Obesity (BMI 30-39.9) E66.9 ; Essential hypertension I10 ; Nephrolithiasis N20.0 ; Bilateral carpal tunnel syndrome G56.03 ; Osteopenia after menopause M81.0 ; Essential tremor G25.0 ; Chronic GERD K21.9 and Chronic cough R05.3 Mahendra Lindsay III, MD [address] [place] [address] [place] [address] 06/07/2024 Mahendra Lindsay III, MD [address] [place] [address] [place] [address] 06/11/2024 Mahendra Lindsay III, MD [address] [place] [address] [place] [address] 08/02/2024 Mahendra Lindsay III, MD [address] [place] [address] [place] [address] 08/07/2024 Mahendra Lindsay III, MD [address] [place] [address] [place] [address] 02/08/2025 Mahendra Lindsay Daytime somnolence R 40.0 ; Snoring R06.83 and Obesity (BMI 30-39.9) E66.9 Mahendra Lindsay III, MD [address] [place] [address] [place] [address] 02/19/2025 Maehndra Lindsay III, MD [address] [place] [address] [place] [address] 03/04/2025 Mahendra Lindsay Assessments Encounter Date Diagnosis (ICD Code) Assessment Notes T reatment Notes Treatment Clinical Notes 05/29/2024 Mixed hyperlipidemia (ICD-10 - E78.2) Her total cholesterol was 243 with an LDL of 150 and an HDL elevated at 76. Her ratio is under 4.0. We have discussed the use of a statin. She continues the effort at weight reduction and lipids reduction by diet. 05/29/2024 Essential hypertension (ICD-10 - I10) Her blood pressure today is 140/80. No change in her regimen was made. We discussed aggressive sodium restriction and weight loss combined with regular physical activity. 08/02/2024 Mixed hyperlipidemia (ICD-10 - E78.2) Her [...] 3 days to report on its efficacy. 01/04/2025 Mixed hyperlipidemia (ICD-10 - E78.2) Her [...] weight loss combined with regular physical activity. 04/23/2025 Sore throat (ICD-10 - J02.9) The pain is reproduced by mild pressure over each carotid artery. The pharynx and the thyroid are free of pain. Comprehensive blood work has been ordered with a sedimentation rate. The temporal arteries were not painful and could not be palpated 04/23/2025 Mixed hyperlipidemia (ICD-10 - E78.2) Her total cholesterol was 243 with an LDL of 150 and an HDL elevated at 76. Her ratio is under 4.0. We have discussed the use of a statin. She continues the effort at weight reduction and lipids reduction by diet. 02/08/2025 Daytime somnolence (ICD-10 - R40.0) 05/29/2024 Chronic cough (ICD-10 - R05.3) She has requested to be referred to specialist to see if she could be rid of the cough. I have sent her to an humanities department chair and back to ENT. A chest x-ray has been ordered. Her oxygen saturation was 99%. 08/02/2024 Essential hypertension (ICD-10 - I10) Her blood pressure today is 142/82. No change in her regimen was made. We discussed aggressive sodium restriction and weight loss combined with regular physical activity. 01/04/2025 Obesity (BMI 30-39.9) (ICD-10 - E66.9) . Her body mass index is 37.. We discussed diet and nutrition today. We made a plan to lose weight at a rate of one half of a pound per week through a diet restricted in fat calories and sodium. 04/23/2025 Obesity (BMI 30-39.9) (ICD-10 - E66.9) She has lost 12 pounds through diet and exercise. Her body mass index remains elevated. We discussed diet and nutrition today. She was encouraged to continue weight loss. 02/08/2025 Snoring (ICD-10 - R06.83) 05/29/2024 Neck pain, acute (ICD-10 - M54.2) The pain in her neck has been present for a week. It was reproduced by pressure on the right lobe of the thyroid as well as the sternocleidomastoid muscle. There was no adenopathy and no palpable mass. Her neck was supple. The oral cavity was unremarkable and she denies having a sore throat. She will be evaluated for thyroiditis. She will use ibuprofen. 08/02/2024 Osteopenia after menopause (ICD-10 - M81.0) She is stable and without bone pain. She will continue on current therapy. 01/04/2025 Osteopenia after menopause (ICD-10 - M81.0) She is stable and without bone pain. She will continue on current therapy. 04/23/2025 Essential hypertension (ICD-10 - I10) Her blood pressure today is within range. She was encouraged to continue losing weight and restricting sodium. 02/08/2025 Obesity (BMI 30-39.9) (ICD-10 - E66.9) 05/29/2024 Obesity (BMI 30-39.9) (ICD-10 - E66.9) She has lost 3 pounds and now weighs 2:15. Her body mass index is 36.9.. We discussed diet and nutrition today. We made a plan to lose weight at a rate of one half of a pound per week through a diet restricted in fat calories and sodium. 08/02/2024 Obesity (BMI 30-39.9) (ICD-10 - E66.9) . Her body mass index is 36.9.. We discussed diet and nutrition today. We made a plan to lose weight at a rate of one half of a pound per week through a diet restricted in fat calories and sodium. 01/04/2025 Osteoarthritis of spine with radiculopathy, cervical region (ICD-10 - M47.22) He is going to have a surgical procedure to repair this next Tuesday. 04/23/2025 Nephrolithiasis (ICD-10 - N20.0) She had an episode of renal colic in September. She will followup with a program support specialist periodically. A stone was retrieved and she was told it was a calcium stone. We have discussed her calcium intake today. 08/02/2024 Osteoarthritis of spine with radiculopathy, cervical [...] She will continue on acetaminophen and ibuprofen. 04/23/2025 Bilateral carpal tunnel syndrome (ICD-10 - G56.03) She is free of any symptoms at this time. 08/02/2024 Generalized anxiety disorder (ICD-10 - F41.1) She was continued on sertraline with follow-up visits. 01/04/2025 Bilateral carpal tunnel syndrome (ICD-10 - G56.03) She is free of any symptoms at this time. 04/23/2025 Osteopenia after menopause (ICD-10 - M81.0) She is stable and without bone pain. She will continue on current therapy. I have recommended she take calcium carbonate 500 mg twice a day as well as 1000 units of vitamin D3. 01/04/2025 Nephrolithiasis (ICD-10 - N20.0) She had an episode of renal colic in September. She will followup with a program support specialist periodically. A stone was retrieved and she was told it was a calcium stone. We have discussed her calcium intake today. 04/23/2025 Essential tremor (ICD-10 - G25.0) There is been no change in the tremor and is very minor. It will be observed. 01/04/2025 Essential tremor (ICD-10 - G25.0) There is been no change in the tremor and is very minor. It will be observed. 04/23/2025 Chronic GERD (ICD-10 - K21.9) She is going to take 40 mg of omeprazole daily. 04/23/2025 Chronic cough (ICD-10 - R05.3) She has requested to be referred to specialist to see if she could be rid of the cough. I have sent her to an humanities department chair and back to ENT. A chest x-ray has been ordered. Her oxygen saturation was 99%. Plan Of Treatment Pending Test Test Name Order Date URINE DIP STICK 01/06/2022 PROFILE, FASTING (COMPREHENSIVE METABOLI C) 05/29/2024 PROFILE, FASTING (COMPREHENSIVE METABOLI C) 04/23/2025 PROFILE, FASTING (COMPREHENSIVE METABOLI C) 06/25/2019 PROFILE, FASTING (COMPREHENSIVE METABOLI C) 11/19/2022 PROFILE, FASTING (COMPREHENSIVE METABOLI C) 08/26/2023 PROFILE, FASTING (COMPREHENSIVE METABOLI C) 08/04/2020 PROFILE, RANDOM (COMPREHENSIVE METABOLIC ) 07/09/2022 PROFILE, RANDOM (COMPREHENSIVE METABOLIC ) 06/29/2021 MAGNESIUM 06/29/2021 LIPID PANEL 06/25/2019 LIPID PANEL 11/19/2022 LIPID PANEL 06/29/2021 LIPID PANEL 08/04/2020 TSH (THYROID STIMULATING HORMONE) 2023 CBC w DIFF 08/04/2020 CBC w DIFF 04/23/2025 CBC w DIFF 05/29/2024 CBC w DIFF 07/09/2022 CBC w DIFF 06/25/2019 CBC w DIFF 11/19/2022 CBC w DIFF 06/29/2021 SED RATE (ESR) 04/23/2025 SED RATE (ESR) 05/29/2024 XR CHEST 2 VIEW PA & LAT 06/30/2022 CBC WITH AUTO DIFF 08/26/2023 SARS COV2 IGG 11/07/2019 Lipid Panel 08/26/2023 Lipid Panel 04/23/2025 Lipid Panel 05/29/2024 Vitamin D 25-OH Total 08/26/2023 Free T4 (Free Thyroxine) 05/29/2024 RT sleep home study type III 02/08/2025 Routine Culture 04/23/2025 Next Appt Details Provider Name:Mahendra Lindsay , 05/09/2025 09:00:00 AM, [address] [place] [address] [address], [place], [address], Provider Name:Mahendra Lindsay , 01/07/2026 09:00:00 AM, [address] [place] [address] [address], [place], [address], Insurance Providers Payer Name Payer Address Payer Phone Subscriber Number Group Number Insured Name Patient Relationship to Insured Coverage Start Date Coverage End Date [facility] [address] [place], [place] [id number] ERIC Self - patient is the insured 5 MEDICARE NGS [address] [place] [address] [id number] ERIC CINTRON Self - patient is the insured 5 Medical (General) History Medical History History ICD Code Mixed hyperlipidemia E78.2 Nephrolithiasis N20.0 degenerative disc disease cervical spine with radiculopathy degenerative disc disease, lumbar spine with radiculopathy positive anti-nuclear antibody osteopenia essential tremor bilateral carpal tunnel syndrome obesity trochanteric bursitis, right hip essential hypertension vitiligo, ankle renal cyst, drained in the past by Dr. Ruthie rocha, urologist environmental allergies last menstrual period age 56 essential hypertension {'Allergies': 'The patient i s allergic to many things, including grass, mold, cockroach dust, trees, dogs, and cats.', 'Medication': 'She takes Flonase and Claritin for her allergies.', 'Cough': 'The patient has had a cough for years, but it has recently worsened.', 'Lump in Neck': 'The patient had a lump on her neck that appeared 5 weeks ago and resolved after a week.', 'Pain in Glands': 'The patient has been experiencing pain in her glands.'} Surgical History Surgery Date(Month/Year) Kidney stone removed 08/2024 Left wrist surgery 02/15/2023 Biopsy done on left knee Dr. Ventura Derm atologist 07/[address] Donis 10/2019 Kidney stone removal 09/2019 kidney stones removal 06/2018 colonoscopy next due to thousand 19 cholecystectomy 2018 bilateral carpal tunnel surgery appendectomy tubal ligation section Hospitalization History Reason Date(Month/Year) No history chest pain [facility] 12/2020 renal colic 12/30/17
--- OUTSIDE RECORDS SUMMARY | 2025-04-24 03:09 | XMS_ITS | Clinical Summary ---
Author Organization [facility] Address [address] [place], [place] [id number] Phone Care Team Providers Care Electrical Systems Design Engineer Name Role Phone Mahendra Lindsay MD Primary Care Provider [phone] Allergies No known active allergies Medications albuterol 90 mcg/actuation inhaler INHALE 2 PUFFS EVERY 4 TO 6 HOURS NEEDED FOR SHORTNESS OF BREATH OR FOR WHEEZE 3 Active aspirin 81 MG EC tablet Take 81 mg by mouth daily. Active fluticasone propionate (FLONASE) 50 mcg/actuation nasal spray 1 spray by Nasal route daily. Active loratadine (CLARITIN) 10 mg tablet Take 10 mg by mouth daily. Active budesonide (PULMICORT FLEXHALER) 90 mcg/actuation inhaler Inhale 1 puff into the lungs 2 (two) times a day. 3 Active ibuprofen (ADVIL,MOTRIN) 200 MG tablet 1 tablet with food or milk as needed Orally every 6 hrs Active potassium citrate (UROCIT-K) 10 mEq SR tablet Take 1 tablet by mouth every morning. 4 Active therapeutic multivitamin tablet Take 1 tablet by mouth daily. Active Active Problems Problem Noted Date Diagnosed Date Trigger finger, left middle finger 02/22/2024 Social History Tobacco Use Types Packs/Day Years Used Date Smoking Tobacco: Former Cigarettes Q uit: 1970 Smokeless Tobacco: Never Tobacco Cessation:Counseling Given: Not Answered Alcohol Use Standard Drinks/Week Comments Yes 2 [...] with a working camera? Not on file Intimate Partner Violence Answer Date R ecorded Are you denied basic needs s uch as food, clothing, or medical care? No 02/22/2024 In the past 12 months have y ou been in a relationship with a person who hurts, threatens, or tries to control you? No 02/22/2024 Are you denied basic needs s uch as food, clothing, or medical care? No 02/22/2024 In the past 12 months have y ou been in a relationship with a person who hurts, threatens, or tries to control you? No 02/22/2024 Comments No Sex and Gender Information Value Date Recorded Sex Assigned at Not on file Legal Sex Female 8:49 AM EDT Gender Identity Not on file Sexual Orientation Not on file Last Filed Vital Signs Vital Sign Reading Time Taken Comments Blood Pressure 118/66 02/22/2024 11:10 AM EDT Pulse 62 02/22/2024 11:10 AM EDT Temperature 36 C (96.8 F) 02/22/2024 11:00 AM EDT Respiratory Rate 15 02/22/2024 11:10 AM EDT Oxygen Saturation 95% 02/22/2024 11:10 AM EDT Inhaled Oxygen Concentration - - Weight 97.5 kg (215 lb) 02/22/2024 8:30 AM EDT Height 163.8 cm (5' 4.49 ) 02/22/2024 8:30 AM ED T Body Mass Index 36.35 02/22/2024 8:30 AM EDT Plan of Treatment Health Maintenance Due Date Last Done Comments Adult Td,Tdap Booster 1956 LIPID PANEL 1956 DEPRESSION SCREENING 1968 SMOKING Hx and SMOKELESS TOBACCO SCREENING 1969 HEPATITIS C SCREENING 1974 SCREENING FOR DIABETES 1991 MAMMOGRAM 1996 COLOGUARD 2001 COLONOSCOPY 2001 COLORECTAL CANCER SCREENING 2001 FIT TEST 2001 FOBT 2001 SIGMOIDOSCOPY 2001 VIRTUAL COLONOSCOPY 2001 ZOSTER VACCINES (2 of 2) 12/03/2017 10/08/2017 OSTEOPOROSIS SCREENING INITIAL (ONE-TIME) 2021 INFLUENZA VACCINE (#1) 2025 , 03/29/2023, 03/05/2022, Additional history exists COVID-19 VACCINE (2024- season) 2025 02/11/2024, 03/29/2023, 01/05/2023, Additional history exists RSV VACCINE Completed 05/07/2023 PNEUMOCOCCAL VACCINES (50+ years) Completed 11/23/2023, 01/23/2018 HEPATITIS A VACCINES Aged Out No long er eligible based on patient's age to complete this topic HIB VACCINES Aged Out No longer eligi ble based on patient's age to complete this topic MENINGOCOCCAL VACCINES (ACWY) Aged Out No longer eligible based on patient's age to complete this topic MENINGOCOCCAL VACCINES (B) Aged Out N o longer eligible based on patient's age to complete this topic Medical Devices Implanted Type Area Chronic Manager Device Identifier Shelf Expiration Date Model / Serial / Lot Radius Plate 3 Hole Titanium Narrow Left - [id number] Implanted:Qty: 1 on 02/15/2023 by Darion Johnson MD at [facility] Left: Wrist [employer] [id number]- 03 / / Screw Bone 14x3.5mm Foot Ankle Cortical Titanium Locking Low Profile T [address] - [id number] Implanted:Qty: 1 on 02/15/2023 by Darion Johnson MD at [facility] Left: Wrist [employer] AR-8935L-14 / / Screw Bone 16x3.5mm Foot Ankle Cortical Titanium Locking Low Profile T [address] - [id number] Implanted:Qty: 1 on 02/15/2023 by Darion Johnson MD at [facility] Left: Wrist [employer] AR-8935L-16 / / Screw Bone 16.0x3.5mm Foot Ankle Cortical Titanium Low Profile Full Thread - [id number] Implanted:Qty: 1 on 02/15/2023 by Darion Johnson MD at [facility] Left: Wrist [employer] AR-8935-16 / / Screw Bone 16x2.4mm Cortex Ti Variable Angle Locking Solid - [id number] Implanted:Qty: 1 on 02/15/2023 by Darion Johnson MD at [facility] Left: Wrist [employer] AR-8724V-16 / / Screw Bone 20.0x2.4mm Cortex Ti Variable Angle Locking Solid - [id number] Implanted:Qty: 1 on 02/15/2023 by Darion Johnson MD at [facility] Left: Wrist [employer] AR-8724V-20 / / Screw Bone 2.4x24mm Ti Variable Angle Low Profile Locking - [id number] Implanted:Qty: 2 on 02/15/2023 by Darion Johnson MD at [facility] Left: Wrist [employer] AR-8724V-24 / / Screw Bone 2.4x26mm Ti Variable Angle Locking Low Profile - [id number] Implanted:Qty: 1 on 02/15/2023 by Darion Johnson MD at [facility] Left: Wrist [employer] AR-8724V-26 / / Insurance CIGNA PPO CIGNA PPO CIGNA PPO CIGNA PPO CIGNA PPO CIGNA PPO Advance Directives For more information, please contact: [phone] (9AM - 5PM Rosalie/[facility], Tuesday-Tuesday) * Full Code (Latest Code Status on File) Date Activated Date Inactivated Comments 02/15/2023 10:44 AM Question Answer Comments Code Status Confirmed With: Patient Care Teams Electrical Systems Design Engineer Relationship Specialty Start Date End Date Mahendra Lindsay MD [address] [place] [address] [place] [address] PCP - General Medical Oncology 02/11/23 Additional Source Comments The information contained in this document represents components of the legal health record. It is not the complete legal health record.[facility]
--- OUTSIDE RECORDS SUMMARY | 2025-04-24 03:09 | XMS_ITS | Encounter Summary ---
Author Organization [facility] Address [address] [place] [address] Care Team Providers Care Tower Climber Name Role Phone Mahendra Lindsay MD Primary Care Provider [phone] Encounter Details Date Type Department Care Team ([facility] Contact Info) Description 03/28/2025 Results Follow-Up Gastroenterology - [address] [id number] Iker Walsh MD [address] [place] [id number] Social History Tobacco Use Types Packs/Day Years Used Date Smoking Tobacco: Never Smokeless Tobacco: Never Alcohol Use Standard Drinks/Week Comments Yes 4 (1 standard drink = 0.6 oz pur e alcohol) Interpersonal Safety Answer Date Record ed Physical Abuse Unrecognized value 03/27/2025 Verbal Abuse Unrecognized value 03/27/2025 Comments No Sex and Gender Information Value Date Recorded Sex Assigned at Female 06/19/2024 7:57 AM EST Legal Sex Female 4:42 AM EST Gender Identity Female 06/19/2024 7:57 AM EST Sexual Orientation Not on file documented as of this encounter Plan of Treatment Not on file documented as of this encounter Goals Goal Patient Goal Type Associated Problems Recent Progress Patient-Stated? Author Automalathi xiomara Goal Care Plan Autogenerated Problem No Cheryl Malone documented as of this encounter Visit Diagnoses Not on filedocumented in this encounter Additional Health Concerns Active Problems Noted Date Diagnosed Date Autogenerated Problem 03/04/2025 documented as of this encounter Care Teams Tower Climber Relationship Specialty Start Date End Date Mahendra Lindsay MD [address] [address] [place] [address] PCP - General Oncology 06/19/24 documented as of this encounter
--- OUTSIDE RECORDS SUMMARY | 2025-04-24 03:09 | XMS_ITS | Encounter Summary ---
Author Organization [facility] Address [address] [place] [address] Care Team Providers Care Retail Advertising Sales Manager Name Role Phone Mahendra Lindsay MD Primary Care Provider [phone] Encounter Details Date Type Department Care Team (Late st Contact Info) Description 02/13/2025 Lab Requisition [facility] - Main Lab [address] [place] [id number] Estella Gonzalez PA [address] [address] Urinary tract infection, site not specified; Frequency of micturition Social History Tobacco Use Types Packs/Day Years Used Date Smoking Tobacco: Never Smokeless Tobacco: Never Alcohol Use Standard Drinks/Week Comments Yes 4 (1 standard drink = 0.6 oz pur e alcohol) Comments No Sex and Gender Information Value Date Recorded Sex Assigned at Female 06/19/2024 7:57 AM EST Legal Sex Female 4:42 AM EST Gender Identity Female 06/19/2024 7:57 AM EST Sexual Orientation Not on file documented as of this encounter Plan of Treatment Not on file documented as of this encounter Procedures Procedure Name Priority Date/Time Associated Diagnosis Comments CULTURE URINE Routine 02/13/2025 12:00 AM EDT Urinary tract infection, site not specified Frequency of micturition documented in this encounter Results * Culture urine (02/13/2025 12:00 AM EDT) Culture, Urine <10,000 cfu/ml, insignificant count, no further workup. 02/14/2025 2:27 PM EDT [facility] Urine Urine specimen obtained by clean catch procedure / Unknown 02/13/2025 02/13/2025 5:45 PM EDT us Estella [facility] MICROBIOLOGY - GENERAL ORD ERABLES Final Result [facility] [address] [place] [address], documented in this encounter Visit Diagnoses Diagnosis Urinary tract infection, site not specified Frequency of micturition Urinary frequency documented in this encounter Care Teams Retail Advertising Sales Manager Relationship Specialty Start Date End Date Mahendra Lindsay MD [address] [address] PCP - General Oncology 06/19/24 documented as of this encounter
--- OUTSIDE RECORDS SUMMARY | 2025-04-24 03:09 | XMS_ITS | Encounter Summary ---
Author Organization [facility] Address [address] [place] [address] Care Team Providers Care Relay Telegrapher Name Role Phone Mahendra Lindsay MD Primary Care Provider [phone] Encounter Details Date Type Department Care Team (Late st Contact Info) Description 02/13/[address] [facility] - Main Lab [address] [facility] [place] [phone] Estella Gonzalez PA [address] [facility] [address] [place] [address] Calculus of kidney Social History Tobacco Use Types Packs/Day Years [...] Procedure Name Priority Date/Time Associated Diagnosis Comments STONE ANALYSIS Routine 02/13/2025 12:00 AM EDT Calculus of kidney documented in this encounter Results * Stone analysis (02/13/2025 12:00 AM EDT) Component(s) See below 02/19/2025 8:51 PM EDT [facility] Comment: 93% Calcium oxalate monohydrate (Whewellite) 2% Carbonate apatite (Dahllite) 5% Protein Stone Weight 0.0190 g 02/19/2025 8:51 PM EDT [facility] Comment: This test was developed and its performance characteristics determined by [facility] in a manner consistent with CLIA requirements. This test has not been cleared or approved by the U.S. Food and Drug Administration. Test performed at [facility], [address], [place] [address] Ca Delgadillo MD, PhD - Machine Feller Calculus 02/13/2025 02/13/2025 6:1 9 PM EDT us Estella [facility] BODY FLUIDS AND STOOLS ORD ERABLES Final Result [facility] [address] [place] [address] documented in this encounter Visit Diagnoses Diagnosis Calculus of kidney documented in this encounter Care Teams Relay Telegrapher Relationship Specialty Start Date End Date Mahendra Lindsay MD [address] [address] PCP - General Oncology 06/19/24 documented as of this encounter
--- OUTSIDE RECORDS SUMMARY | 2025-04-24 03:10 | XMS_ITS | Clinical Summary ---
Author Organization [facility] Address [address] [place] [address] Phone Care Team Providers Care Supervisor Sound Technician Name Role Phone Mahendra Lindsay MD Primary Care Provider [phone] Allergies No known active allergies Medications albuterol HFA (PROAIR HFA ; PROVENTIL HFA ; VENTOLIN HFA) 90 mcg/actuation inhaler Inhale 2 puffs by mouth every 6 (six) hours if needed. 01/16/20 23 Active aspirin 81 mg EC tablet Take 1 tablet (81 mg total) by mouth daily. Active gabapentin (NEURONTIN) 300 mg capsule Take 1 capsule (300 mg total) by mouth 2 (two) times a day. 11/20/19 25 Active pantoprazole (PROTONIX) 40 mg EC tablet Take 1 tablet (40 mg total) by mouth 1 (one) time each day. for 90 days 10/30/19 25 Active potassium citrate (UROCIT-K) 10 mEq (1,080 mg) CR tablet Take 1 tablet (10 mEq total) by mouth 1 (one) time each day. Active loratadine (CLARITIN) 10 mg tablet Take 1 tablet (10 mg total) by mouth daily. Active fluticasone propionate (FLONASE) 50 mcg/actuation nasal spray Administer 1 spray into affected nostril(s) daily. Active omeprazole (PriLOSEC) [address] capsuleIndicat ions:Chronic cough,Chronic throat clearing TAKE 1 CAPSULE BY MOUTH TWICE A DAY SWALLOW WHOLE 180 capsule 1 04/22/20 25 Active omeprazole (PriLOSEC) [address] capsuleIndicat ions:Chronic cough,Chronic throat clearing Take 1 capsule (20 mg total) by mouth 2 (two) times a day. Do not crush or chew. 60 each 1 03/27/20 25 025 Discontinued(Re order) omeprazole (PriLOSEC) [address] capsuleIndicat ions:Chronic cough,Chronic throat clearing Take 1 capsule (20 mg total) by mouth 2 (two) times a day. Do not crush or chew. 60 each 1 03/28/20 25 025 Discontinued Active Problems Problem Noted Date Diagnosed Date Chronic throat clearing 01/02/2025 Chronic cough 01/02/2025 Intertrigo 03/06/2024 Melanocytic nevus of left lower extremity 2023 Melanocytic nevus of right lower extremity 03/06 Melanocytic nevus of left upper extremity 2023 Melanocytic nevus of right upper extremity 03/06 Trigger finger, left middle finger 02/22/2024 Asteatosis cutis 01/19/2022 Disorder of pigmentation 01/19/2022 Hemangioma of skin and subcutaneous tissue 01/19 Hypopigmentation of skin 01/19/2022 Vitiligo 01/19/2022 Inflamed seborrheic keratosis 01/19/2022 Melanocytic nevus of trunk 01/19/2022 Seborrheic dermatitis 01/19/2022 Encounters Date Type Department Care Team Description 03/28/2025 Results Follow-Up Gastroenterology - 299 [facility] [address] [phone] Iker Walsh MD 03/27/2025 10:12 AM EDT Anesthesia Event [facility] [address] [place] [phone] Alejo Amaral MD Elliott, Barbara J, CRNA 03/27/2025 8:41 AM EDT - 03/27/2025 11:59 PM EDT Hospital Encounter [facility] [address] [place] [phone] Iker Walsh MD Elliott, Barbara J, CRNA Saliga, Jesse L, MD Chronic cough; Chronic throat clearing Discharge Disposition: Home or Self Care 02/13/[address] [facility] Lab [address] [place] [address] Estella Gonzalez PA Calculus of kidney 02/13/[address] [facility] - [facility] Lab [address] [place] [address] Estella Gonzalez PA Urinary tract infection, site not specified; Frequency of micturition from Last 3 Months Surgical History Surgery Date Site/Laterality Comments KIDNEY STONE SURGERY Bilateral WRIST SURGERY Left SECTION Bilateral Medical History Medical History Date Comments Kidney stones Family History Medical History Relation Name Comments Breast cancer Maternal Grandmother Breast cancer Mother Relation Name Status Comments Maternal Grandmother Mother Social History Tobacco Use Types Packs/Day Years Used Date Smoking Tobacco: Never Smokeless Tobacco: Never Tobacco Cessation:Counseling Given: Not Answered Alcohol Use Standard Drinks/Week Comments Yes 4 [...] AM EST Sexual Orientation Not on file Obstetrics History Para Term AB IAB SAB Ectopic Multiple Livin g Live Births 1 Last Filed Vital Signs Vital Sign Reading Time Taken Comments Blood Pressure 160/90 03/27/2025 10:41 AM EDT Pulse 73 03/27/2025 10:41 AM EDT Temperature 35.9 C (96.7 F) 03/27/2025 9:29 AM EDT Respiratory Rate 18 03/27/2025 10:41 AM EDT Oxygen Saturation 96% 03/27/2025 10:41 AM EDT Inhaled Oxygen Concentration - - Weight 95.3 kg (210 lb) 03/27/2025 9:29 AM EDT Height 162.6 cm (5' 4 ) 03/27/2025 9:29 AM EDT Body Mass Index 36.05 03/27/2025 9:29 AM EDT Plan of Treatment Health Maintenance Due Date Last Done Comments Zoster Vaccines (2 of 2) 12/03/2017 10/08/2017 Colorectal Cancer Screening: Colonoscopy 08/14/2019 08/13/2009 Hepatitis C Screening 05/09/2022 Medicare Annual Wellness Visit 05/09/2022 Social Influencers of Health Screening 05/09/2022 Depression Screening 06/06/2024 COVID-19 Vaccine ( season) 2025 02/20/2025, 09/13/2024, 02/11/2024, Additional history exists Falls Risk Assessment 03/27/2026 03/27/2025 Breast Cancer Screening 12/10/2026 12/11/19 25, 08/27/2024, 11/29/2022, Additional history exists DTaP,Tdap,and Td Vaccines (2 - Td or Tdap) 04/01/2034 04/01/2024 Osteoporosis Screening (Bone Density Screening) 12/10/2034 12/10/2024, 11/24/2020, 10/27/2017 RSV Immunization Adult Patients Completed 05/07/2023 Pneumococcal Vaccine: 50+ Years Completed 11/23/2023, 01/23/2018 Influenza Vaccine Completed 02/20/2025, , 03/29/2023, Additional history exists HIB Vaccines Aged Out No longer eligi ble based on patient's age to complete this topic HPV Vaccines Aged Out No longer eligi ble based on patient's age to complete this topic Hepatitis A Vaccines Aged Out No long er eligible based on patient's age to complete this topic Hepatitis B Vaccines Aged Out No long er eligible based on patient's age to complete this topic IPV Vaccines Aged Out No longer eligi ble based on patient's age to complete this topic MMR Vaccines Aged Out No longer eligi ble based on patient's age to complete this topic Meningococcal ACWY Vaccine Aged Out N o longer eligible based on patient's age to complete this topic Meningococcal B Vaccine Aged Out No l onger eligible based on patient's age to complete this topic RSV Immunization Patients Under 20 months Aged Out No longer eligible based on patient's age to complete this topic Varicella Vaccines Aged Out No longer eligible based on patient's age to complete this topic Goals Goal Patient Goal Type Associated Problems Recent Progress Patient-Stated? Author Automalathi solano Goal Care Plan Autogenerated Problem No Kira, Cheryl H Medical Devices Implanted Type Area Fitness Worker Device Identifier Shelf Expiration Date Model / Serial / Lot Screws Left: Wrist Procedures Procedure Name Priority Date/Time Associated Diagnosis Comments EGD Routine 03/27/2025 10:20 AM EDT Chronic cough Chronic throat clearing TISSUE EXAM Routine 03/27/2025 10:17 AM EDT Chronic cough Chronic throat clearing STONE ANALYSIS Routine 02/13/2025 12:00 AM EDT Calculus of kidney CULTURE URINE Routine 02/13/2025 12:00 AM EDT Urinary tract infection, site not specified Frequency of micturition BD BONE DENSITY DXA AXIAL SKELETON Routine 12/10/2024 8:51 AM EDT Asymptomatic menopausal state MG MAMMO DIGITAL SCREENING W TOMER BILAT Routine 12/10/2024 8:04 AM EDT Encounter for screening mammogram for breast cancer EXTERNAL COLONOSCOPY REPORT Routine 08/13/2009 8:36 AM EST from Last 3 Months or Most Recently Relevant to Health Maintenance Results * EGD Anesthesia - MAC; [facility] ENDOSCOPY (03/27/2025 10:20 AM EDT) Anatomical Region Laterality Modality Other 03/27/2025 10:1 7 AM EDT Impressions 03/27/2025 10:21 AM EDT - Normal middle third of esophagus. Biopsied. - Normal lower third of esophagus. Biopsied. - Normal stomach. - Normal examined duodenum. Recommendation: - Use a proton pump inhibitor PO BID for 2 months. Narrative 03/27/2025 10:21 AM EDT [facility] GI Patient Name: Eric Vazquez Procedure Date: 03/27/2025 10:17 AM Date of : 1955 Age: 70 Room: ROOM 14 Gender: Female Note Status: Finalized Attending MD: Iker Walsh MD, Procedure Date No Time: 03/27/2025 Procedure: Upper GI endoscopy Indications: Exclusion of gastro-esophageal reflux disease, Chronic cough, Sore throat Providers: Iker Walsh MD Referring MD: Iker Walsh MD Medicines: Propofol per Anesthesia Complications: No immediate complications. Estimated Blood Loss: Estimated blood loss: none. Procedure: Pre-Anesthesia Assessment: - ASA Grade Assessment: II - A patient with mild systemic disease. After obtaining informed consent, the endoscope was passed under direct vision. Throughout the procedure, the patient's blood pressure, pulse, and oxygen saturations were monitored continuously.The Olympus Gastroscope was introduced through the mouth, and advanced to the second part of duodenum. The upper GI endoscopy was accomplished without difficulty. The patient tolerated the procedure well. Findings: The middle third of the esophagus was normal. Biopsies were taken with a cold forceps for histology. The lower third of the esophagus was normal. Biopsies were taken with a cold forceps for histology. The stomach was normal. The examined duodenum was normal. Procedure Code(s): --- Professional --- 96615, Esophagogastroduodenoscopy, flexible, transoral; with biopsy, single or multiple Diagnosis Code(s): --- Professional --- R05.3, Chronic cough J02.9, Acute pharyngitis, unspecified CPT copyright 2020 [employer]. All rights reserved. The codes documented in this report are preliminary and upon certified medical records coder review may be revised to meet current compliance requirements. Iker Walsh MD 03/27/2025 10:21:47 AM This report has been signed electronically.Iker Walsh MD Number of Addenda: 0 Note Initiated On: 03/27/2025 10:17 AM Scope In: Scope Out: Endoscopy Department at [facility] - [address] [place] [phone] Procedure Note Iker Walsh MD - 03/27/2025 [facility] GI Patient Name: Eric Vazquez Procedure Date: 03/27/2025 10:17 AM Date of : 1955 Age: 70 Room: ROOM 14 Gender: Female Note Status: Finalized Attending MD: Iker Walsh MD, Procedure Date No Time: 03/27/2025 Procedure: Upper GI endoscopy Indications: Exclusion of gastro-esophageal reflux disease,Chronic cough, Sore throat Providers: Iker Walsh MD Referring MD: Iker Walsh MD Medicines: Propofol per Anesthesia Complications: No immediate complications. Estimated Blood Loss: Estimated blood loss: none. Procedure: Pre-Anesthesia Assessment: - ASA Grade Assessment: II - A patient with mild systemic disease. After obtaining informed consent, the endoscope was passed under direct vision. Throughout theprocedure, the patient's blood pressure, pulse, and oxygen saturations were monitored continuously.The Olympus Gastroscope was introduced through the mouth, and advanced to the second part of duodenum. The upperGI endoscopy was accomplished without difficulty. The patient tolerated the procedure well. Findings: The middle third of the esophagus was normal.Biopsies were taken with a cold forceps for histology. The lower third of the esophagus was normal.Biopsies were taken with a cold forceps for histology. The stomach was normal. The examined duodenum was normal. Procedure Code(s): --- Professional --- 00961, Esophagogastroduodenoscopy, flexible, transoral; with biopsy, single or multiple Diagnosis Code(s): --- Professional --- R05.3, Chronic cough J02.9, Acute pharyngitis, unspecified CPT copyright 2020 [employer]. All rights reserved. The codes documented in this report are preliminary and upon certified medical records coder reviewmay be revised to meet current compliance requirements. Iker Walsh MD 03/27/2025 10:21:47 AM This report has been signed electronically.Iker Walsh MD Number of Addenda: 0 Note Initiated On: 03/27/2025 10:17 AM Scope In: Scope Out: Endoscopy Department at [facility] - [address] [place] [phone] IMPRESSION: - Normal middle third of esophagus. Biopsied. - Normal lower third of esophagus. Biopsied. - Normal stomach. - Normal examined duodenum. Recommendation: - Use a proton pump inhibitor PO BID for 2months. us Iker Walsh MD GI~PROCEDURE ORDERABLES Fin al Result * Tissue exam (03/27/2025 10:17 AM EDT) Final Diagnosis A. Distal esophagus, biopsy: - Esophageal squamous mucosa with focal mild basilar hyperplasia; otherwise no diagnostic histopathologic change. - No intraepithelial eosinophils are identified. B. Mid-esophagus, biopsy: - Esophageal squamous mucosa without diagnostic histopathologic change. - No intraepithelial eosinophils are identified. 03/28/2025 10:36 AM EDT [facility] at 1036 EDT Gross Description A. Esophagus, distal esophagus biopsies: Labeled esophagus distal . Received in formalin are two irregular pink-white mucosal tissue fragments, measuring 0.2 cm and 0.4 cm in greatest dimension, which are wrapped in paper and submitted in toto in one cassette, two pieces, multiple levels on one slide. B. Esophagus, mid. biopsies: Labeled esophagus mid . Received in formalin are two irregular pink-white mucosal tissue fragments, each measuring approximately 0.2 cm in greatest dimension, which are wrapped in paper and submitted in toto in one cassette, two pieces, multiple levels on one side. JULIANN 03/28/2025 10:36 AM EDT [facility] Disclaimer Unless otherwise specified, all tissue is 10% NB formalin fixed and paraffin embedded. 03/28/2025 10:36 AM EDT [facility] Tissue Esophageal structure / Unknown 03/27/2025 10:17 AM EDT 03/27/2025 12:09 PM EDT Tissue specimen (specimen) Esophageal structure / Unknown 03/27/2025 10:18 AM EDT 03/27/2025 12:09 PM EDT Iker Walsh MD LAB PATHOLOGY ORDERABLES Fi nal Result [facility] [address] [place] [address], * Stone analysis (02/13/2025 12:00 AM EDT) Component(s) See below 02/19/2025 8:51 PM EDT [facility] Comment: 93% Calcium oxalate monohydrate (Whewellite) 2% Carbonate apatite (Dahllite) 5% Protein Stone Weight 0.0190 g 02/19/2025 8:51 PM EDT [facility] Comment: This test was developed and its performance characteristics determined by [facility] in a manner consistent with CLIA requirements. This test has not been cleared or approved by the U.S. Food and Drug Administration. Test performed at [facility], [address], [place] [address] Ca Delgadillo MD, PhD - Trial Judge Calculus 02/13/2025 02/13/2025 6:1 9 PM EDT [facility] BODY FLUIDS AND STOOLS ORD ERABLES Final Result [facility] [address] [place] [address] * Culture urine (02/13/2025 12:00 AM EDT) Culture, Urine <10,000 cfu/ml, insignificant count, no further workup. 02/14/2025 2:27 PM EDT [facility] Urine Urine specimen obtained by clean catch procedure / Unknown 02/13/2025 02/13/2025 5:45 PM EDT [facility] MICROBIOLOGY - GENERAL ORD ERABLES Final Result [facility] [address] [place] [address], [place] [phone] * BD Bone Density DXA Axial Skeleton (12/10/2024 8:51 AM EDT) Anatomical Region Laterality Modality Wrist, Hip, L-spine Bone Densito metry 12/10/2024 9:39 AM EDT Impressions 12/10/2024 9:41 AM EDT 1. Osteopenia. There has been a decrease of 0.6% in bone mineral density in the lumbar spine since the prior examination of 11/24/2020. There has been a decrease of 0.5% in bone mineral density in the right femur and a decrease of 2.5% in bone mineral density in the left femur. 2. FRAX analysis yields a 10-year probability of major osteoporotic fracture of 17.3% and a 10-year probability of hip fracture of 3.0%. Code 20570 -------- FINAL REPORT -------- Dictated By: Leonides Ordonez Dictated Date: 12/10/2024 09:39 ET Assigned Physician: Leonides Ordonez Reviewed and Electronically Signed By: Leonides Ordonez Signed Date: 12/10/2024 09:41 ET Workstation ID: [id number] Transcribed By: Self Edit Transcribed Date: 12/10/2024 09:39 ET Narrative 12/10/2024 9:41 AM EDT HISTORY: The patient is a 69-year-old postmenopausal female with clinical concern for metabolic bone disease. FINDINGS: Dual energy x-ray absorptiometry of the lumbar spine and femurs is performed. The mean bone mineral density at L1-2 is 1.159 gm/cm2 which is 99% of that of young normals and 106% of that of age matched controls. This yields a T-score of -0.1 and a Z-score of 0.5 and there is therefore no evidence of osteoporosis or osteopenia here. The mean bone mineral density of the femurs bilaterally is 0.911 gm/cm2 which is 90% of that of young normals and 98% of that of age matched controls. This yields a T-score of -0.8 and a Z-score of -0.2 and there is therefore no evidence of osteoporosis or osteopenia here. However, the T-score of the right femoral neck is -2.0 and that of the left femoral neck is -1.8 which is diagnostic of osteopenia. Procedure Note Leonides Ordonez MD - 12/10/2024 HISTORY: The patient is a 69-year-old postmenopausal female with clinicalconcern for metabolic bone disease. FINDINGS: Dual energy x-ray absorptiometry of the lumbar spine and femursis performed. The mean bone mineral density at L1-2 is 1.159 gm/cm2 whichis 99% of that of young normals and 106% of that of age matched controls.This yields a T-score of -0.1 and a Z-score of 0.5 and there is thereforeno evidence of osteoporosis or osteopenia here. The mean bone mineral density of the femurs bilaterally is 0.911 gm/pl7vqahv is 90% of that of young normals and 98% of that of age matchedcontrols. This yields a T-score of -0.8 and a Z-score of -0.2 and thereis therefore no evidence of osteoporosis or osteopenia here. However, theT-score of the right femoral neck is -2.0 and that of the left femoralneck is -1.8 which is diagnostic of osteopenia. IMPRESSION: 1. Osteopenia. There has been a decrease of 0.6% in bone mineral densityin the lumbar spine since the prior examination of 11/24/2020. There hasbeen a decrease of 0.5% in bone mineral density in the right femur and adecrease of 2.5% in bone mineral density in the left femur. 2. FRAX analysis yields a 10-year probability of major osteoporoticfracture of 17.3% and a 10-year probability of hip fracture of 3.0%. Code 00594 -------- FINAL REPORT -------- Dictated By: Leonides Ordonez Dictated Date: 12/10/2024 09:39 ET Assigned Physician: Leonides Ordonez Reviewed and Electronically Signed By: Leonides Ordonez Signed Date: 12/10/2024 09:41 ET Workstation ID: [id number] Transcribed By: Self Edit Transcribed Date: 12/10/2024 09:39 ET Kezia Santacruz MD IM DXA PROCEDURES Final R esult * MG Mammo Digital Screening w Tomer bilat (12/10/2024 8:04 AM EDT) Anatomical Region Laterality Modality Breast Bilateral Mammography 12/10/2024 8:31 AM EDT Impressions 12/10/2024 8:34 AM EDT No mammographic evidence of malignancy. A negative mammogram in the presence of a clinically suspicious palpable abnormality does not preclude the possibility of malignancy or alter the indications for biopsy. PQRI CPT II 3342F Code 00316, 62582 PQRI 225 CPT II 7025F TISSUE DENSITY: The breasts are almost entirely fatty. (BI-RADS Category A) IMPRESSION: Benign. BI-RADS CATEGORY: 2 - BENIGN RECOMMENDATION: Screening bilateral mammogram is recommended in 1 year. Mammo Location: [facility], [address] [place] [address] -------- FINAL REPORT -------- Dictated By: Leonides Ordonez Dictated Date: 12/10/2024 08:31 ET Assigned Physician: Leonides Ordonez Reviewed and Electronically Signed By: Leonides Ordonez Signed Date: 12/10/2024 08:34 ET Workstation ID: [id number] Transcribed By: Self Edit Transcribed Date: 12/10/2024 08:31 ET Narrative 12/10/2024 8:34 AM EDT CLINICAL: The patient is a 69 years Female presenting for routine screening mammography. COMPARISON: Most recently 12/05/2023 and most remotely 10/27/2017. TECHNIQUE: Full-field digital mammography of the breasts bilaterally consisting of tomosynthesis in MLO and CC projection is performed in the [employer] 2000-D unit. Computer aided detection utilizing the Monster ArtsD system was utilized. FINDINGS: The breasts are again seen to be largely fatty replaced. A few scattered benign punctate calcifications, most of which are dermal, are stable. There is no suspicious cluster of microcalcifications, mass, or area of architectural distortion. There is no skin thickening or nipple retraction. Procedure Note Leonides Ordonez MD - 12/10/2024 CLINICAL: The patient is a 69 years Female presenting for routinescreening mammography. COMPARISON: Most recently 12/05/2023 and most remotely 10/27/2017. TECHNIQUE: Full-field digital mammography of the breasts bilaterallyconsisting of tomosynthesis in MLO and CC projection is performed in theChannel Mographe 2000-D unit. Computer aided detection utilizing the iCADsystem was utilized. FINDINGS: The breasts are again seen to be largely fatty replaced. A fewscattered benign punctate calcifications, most of which are dermal, arestable. There is no suspicious cluster of microcalcifications, mass, orarea of architectural distortion. There is no skin thickening or nippleretraction. IMPRESSION: No mammographic evidence of malignancy. A negative mammogram in the presence of a clinically suspicious palpableabnormality does not preclude the possibility of malignancy or alter theindications for biopsy. PQRI CPT II 3342F Code 72370, 14514 PQRI 225 CPT II 7025F TISSUE DENSITY: The breasts are almost entirely fatty. (BI-RADS CategoryA) IMPRESSION: Benign. BI-RADS CATEGORY: 2 - BENIGN RECOMMENDATION: Screening bilateral mammogram is recommended in 1 year. Mammo Location: [facility], [address] [place] [id number] -------- FINAL REPORT -------- Dictated By: Leonides Ordonez Dictated Date: 12/10/2024 08:31 ET Assigned Physician: Leonides Ordonez Reviewed and Electronically Signed By: Leonides Ordonez Signed Date: 12/10/2024 08:34 ET Workstation ID: [id number] Transcribed By: Self Edit Transcribed Date: 12/10/2024 08:31 ET us Self Referral [facility] IMG BI PROCEDURES Final Resul t * External Colonoscopy Report (08/13/2009 8:36 AM EST) Anatomical Region Laterality Modality Endoscopy us Historical Provider GI~PROCEDURE ORDERABLES F inal Result from Last 3 Months or Most Recently Relevant to Health Maintenance Additional Health Concerns Active Problems Noted Date Diagnosed Date Autogenerated Problem 03/04/2025 Insurance BLUE [place] - [place] MEDICARE ADVANT[place] Care Teams Supervisor Sound Technician Relationship Specialty Start Date End Date Mahendra Lindsay MD [address] [address] [place] [address] PCP - General Oncology 06/19/24
--- OUTSIDE RECORDS SUMMARY | 2025-04-24 03:12 | XMS_ITS | Encounter Summary ---
Author Organization [facility] Address [address] [place] [phone] Phone Care Team Providers Care Billing Representative Name Role Phone Mahendra Lindsay MD Primary Care Provider [phone] Encounter Details Date Type Department Care Team (Late st Contact Info) Description 02/22/2024 Procedure Pass OR Admitting Dept - Virtual Department [address] [place] [address] Social History Tobacco Use Types Packs/Day Years [...] on filedocumented in this encounter Care Teams Billing Representative Relationship Specialty Start Date End Date Mahendra Lindsay MD [address] [place] [address] [place] [address] PCP - General Medical Oncology 02/11/23 documented as of this encounter Additional Source Comments The information contained in this document represents components of the legal health record. It is not the complete legal health record.[facility]
--- OUTSIDE RECORDS SUMMARY | 2025-04-24 03:12 | XMS_ITS | Encounter Summary ---
Author Organization [facility] Address [address] [place] [id number] Phone Care Team Providers Care Drawing In Hand Name Role Phone Mahendra Lindsay MD Primary Care Provider [phone] Encounter Details Date Type Department Care Team ([facility] st Contact Info) Description 02/07/2024 Prep for Surgery [facility] & [facility] Medicine [address] [place] [id number] Maryuri Bro MD [address] [place] [address] Orthopedics & Sports Medicine, [facility] [place] [address] [email or web address] Social History Tobacco Use Types Packs/Day Years [...] on filedocumented in this encounter Care Teams Drawing In Hand Relationship Specialty Start Date End Date Mahendra Lindsay MD [address] [place] [address] [place] [address] PCP - General Medical Oncology 02/11/23 documented as of this encounter Additional Source Comments The information contained in this document represents components of the legal health record. It is not the complete legal health record.[facility]
== END 2025-04-23 09:31 | disposition home or self-care (01) ==
LOC: HO.LNP 09:30
PROVIDERS: Visit Provider Internal Medicine Medical Oncology
DX: J02.9 Acute pharyngitis, unspecified (principal)
CPT/HCPCS: 87070; 87205

== ENCOUNTER → 2025-04-25 09:43 | Outpatient (REF) | payer BC, SELFPAY | LOC: HO.SL 09:43 | PROVIDERS: PCP Internal Medicine Medical Oncology; Visit Provider Internal Medicine Medical Oncology | DX: G47.33 Obstructive sleep apnea (adult) (pediatric) (principal); R40.0 Somnolence; R06.83 Snoring; E66.9 Obesity, unspecified | CPT/HCPCS: 95806 ==

== ENCOUNTER → 2025-04-25 21:00 | Outpatient (BNV) | payer BC, SELFPAY | PROVIDERS: PCP Internal Medicine Medical Oncology; Visit Provider Psychiatry & Neurology Neurology | DX: G47.33 Obstructive sleep apnea (adult) (pediatric) (principal) | CPT/HCPCS: 95806 ==